=== PATIENT | female | born 1965 | race Caucasian/White ===

== ENCOUNTER 2016-11-11 14:37 | Emergency (ER) | payer OTHER, BC ==
[~2016-11-11] VITALS: Ht 172.7 cm; Wt 62.5 kg
[~2016-11-11 14:37] MED LIST: ACET325S8 PR; FAMO20TA2 PO; HALO5TAB PO; HYDR-3533 PO; HYDR1CAP30 PO; IBUP100S PO; IBUP600T26 PO
[2016-11-11 14:54] VITALS: BP 126/75; PULSE 93; RESP 18; TEMP 98; O2SAT 96
[2016-11-11] MEDS ORDERED: MIGRAINE MED (15:08)
[2016-11-11] MEDS ORDERED: ROPI.25 PO (15:08)
[2016-11-11] MEDS ORDERED: DIAZ10 PO (15:08)
[2016-11-11] MEDS ORDERED: NEUR100C PO (15:08)
[2016-11-11] MEDS ORDERED: PERC5TAB12 PO (15:25)
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
== END 2016-11-11 16:25 | disposition home or self-care (01) ==
LOC: PHEFT 14:37
DX: G89.29 Other chronic pain (principal); M79.671 Pain in right foot
CPT/HCPCS: 29515

== ENCOUNTER 2016-11-20 22:18 | Inpatient (IN) | payer BC, MEDICAID ==
[~2016-11-20] VITALS: Ht 170.2 cm; Wt 76.9 kg
[~2016-11-20 22:18] MED LIST changes: -ACET325S8 PR; +DIAZ10 PO; -FAMO20TA2 PO; -HALO5TAB PO; -HYDR-3533 PO; -HYDR1CAP30 PO; -IBUP100S PO; -IBUP600T26 PO; +MIGRAINE MED; +NEUR100C PO; +PERC5TAB12 PO; +ROPI.25 PO
[2016-11-20 22:30] VITALS: BP 114/68; PULSE 91; RESP 12; TEMP 98.6; O2SAT 97
[2016-11-20 22:57] VITALS: BP 114/68; PULSE 91; RESP 12; TEMP 98.6; O2SAT 97
[2016-11-20] MEDS ORDERED: VANCOMYCIN INJ 1,000 MG in SODIUM CHLOR 0.9% 250 ML INJ 250 ML IV ONE (23:30)
[2016-11-20] MEDS ORDERED: IBUP-1129 PO (23:31)
[2016-11-20] MEDS ORDERED: TOPA100T11 PO (23:31)
[2016-11-20] MEDS ORDERED: NEUR600T PO (23:31)
[2016-11-20] MEDS ORDERED: CYCL1TAB29 PO (23:31)
[2016-11-20] MEDS ORDERED: REQU3TAB PO (23:31)
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
[2016-11-20] MEDS ORDERED: DIAZ5 PO (23:41)
[2016-11-21 00:25] LABS: BASOPHIL # 0.1 TH/MM3 (0-0.2); BASOPHIL % 0.8 % (0.0-2.0); EOSINOPHIL # 0.4 TH/MM3 (0-0.4); EOSINOPHIL % 3.6 % (0.0-4.0); HEMATOCRIT 36.7 % (35.0-46.0); HEMO FLAGS DIFF FINAL; LYMPH % 23.8 % (9.0-44.0); LYMPHOCYTE # 2.6 TH/MM3 (1.0-4.8); MEAN CELL VOLUME 95.5 FL (80.0-100.0); MEAN CORPUSCULAR HEMOGLOBIN 32.1 PG (27.0-34.0); MEAN CORPUSCULAR HGB CONC 33.7 % (32.0-36.0); MONO % 6.9 % (0.0-8.0); NEUT % 64.9 % (16.0-70.0); PLATELET COUNT 352 TH/MM3 (150-450); RED BLOOD COUNT 3.84 MIL/MM3 (4.00-5.30); RED CELL DISTRIBUTION WIDTH 13.5 % (11.6-17.2); WHITE BLOOD COUNT 10.9 TH/MM3 (4.0-11.0)
[2016-11-21 00:36] LABS: POTASSIUM 3.5 MEQ/L (3.5-5.1)
[2016-11-21 00:39] LABS: BICARBONATE 27.7 MEQ/L (21.0-32.0)
[2016-11-21] MEDS ORDERED: MORPHINE SULFATE 4 MG/ML INJ IV PUSH ONE (01:00)
[2016-11-21] MEDS ORDERED: ONDANSETRON HCL 4 MG/2 ML VIAL IV PUSH ONE (01:00)
[2016-11-21] MEDS: CEFEPIME 2000 MG/NS 100 ML IV SCH ×4 (01:45→10:59)
--- NOTE | 2016-11-21 02:58 | RADRPT ---
EXAM DATE/TIME: 11/21/2016 00:21 [facility] COMPARISON: No previous studies available for comparison. INDICATIONS : Post operative evaluation for abscess in right great toe. RADIATION DOSE: 6.11 CTDIvol (mGy) MEDICAL HISTORY : None SURGICAL HISTORY : right great toe. ENCOUNTER: Initial ACUITY: 3 days PAIN SCALE: 8/10 LOCATION: Right great toe TECHNIQUE: Volumetric scanning of the foot was performed. Using automated exposure control and adjustment of th e mA and/or kV according to patient size, radiation dose was kept as low as reasonably achievable to obtain optimal diagnostic quality images. DICOM format image data is available electronically for re view and comparison. FINDINGS: There is a threaded orthopedic screw traversing the interphalangeal joint of the great toe. It course s from medial to lateral. There is destructive changes seen involving the base of the distal phalanx along its more lateral margin with similar changes noted involving the articular surface of the proxi mal phalanx of the great toe. There is circumferential soft tissue swelling involving the great toe. No discrete abscess. The remaining bony structures are unremarkable. No air is seen involving the sof t tissues. CONCLUSION: 1. Orthopedic screw traversing the interphalangeal joint of the great toe. 2. Destructive changes involving the distal phalanx and proximal phalanx of the great toe as detailed above. This is concerning for osteomyelitis. 3. No abscess. Vadim Kerr Jr., MD on November 21, 2016 at 1:00 Board Certified Radiologist. This report was verified electronically.
--- NOTE | 2016-11-21 02:58 | RADRPT ---
EXAM DATE/TIME: 11/21/2016 00:07 [facility] COMPARISON: No previous studies available for comparison. INDICATIONS : Post operative pain and swelling in right great toe. MEDICAL HISTORY : None. SURGICAL HISTORY : Right great toe. ENCOUNTER: Initial ACUITY: 1 day PAIN SCORE: 8/10 LOCATION: Right foot, great toe. FINDINGS: 3 views of the right first toe reveal a threaded orthopedic screw traversing the interphalangeal join t of the great toe. There is lucency surrounding the articular surfaces of the distal phalanx and pro ximal phalanx with suspected cortical destruction. No retained foreign body. Diffuse soft tissue swel ling. No appreciable air within the soft tissues. CONCLUSION: Postsurgical changes with soft tissue swelling of the great toe. Bony destructive changes involving t he distal phalanx and proximal phalanx worrisome for osteomyelitis. Vadim Kerr Jr., MD on November 21, 2016 at 1:21 Board Certified Radiologist. This report was verified electronically.
[2016-11-21] MEDS ORDERED: NICOTINE 14 MG/24 HR PATCH T-DERMAL SCH ×2 (03:00→06:00)
[2016-11-21] MEDS ORDERED: SODIUM CHLORIDE FLUSH PRN IV FLUSH (03:15)
[2016-11-21] MEDS ORDERED: MORPHINE SULFATE 4 MG/ML INJ IV PRN (03:30)
[2016-11-21] MEDS ORDERED: CYCLOBENZAPRINE HCL 10 MG TAB PO PRN (03:45)
[2016-11-21 06:22] VITALS: BP 124/91; PULSE 77; RESP 14; TEMP 98.1; O2SAT 99
[2016-11-21] MEDS ORDERED: CEFEPIME 1000 MG/NS 100 ML IV SCH ×2 (09:00)
[2016-11-21 09:04] VITALS: BP 118/76; PULSE 69; RESP 18; TEMP 98; O2SAT 96
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
[2016-11-21] MEDS: SODIUM CHLORIDE FLUSH BID IV FLUSH SCH ×2 (10:52→19:59)
[2016-11-21] MEDS: ACETAMINOPHEN/HYDROcodone 325 MG/10 MG TAB PO PRN ×3 (11:33→19:59)
[2016-11-21] MEDS: NICOTINE 7 MG/24 HR PATCH T-DERMAL SCH (11:34)
[2016-11-21] MEDS ORDERED: Vancomycin Consult Pharmacy 1 EA OTHER SCH (11:45)
[2016-11-21 12:00] VITALS: BP 149/96; PULSE 72; RESP 18; TEMP 97; O2SAT 98
[2016-11-21] MEDS ORDERED: VANCOMYCIN 1,000 MG/NS 250 ML IV SCH ×2 (12:00)
[2016-11-21] MEDS: VANCOMYCIN 0 MG/NS 250 ML IV SCH ×4 (12:49→23:45)
[2016-11-21] MEDS: CYCLOBENZAPRINE HCL 10 MG TAB PO SCH ×2 (12:49→16:51)
[2016-11-21 16:00] VITALS: BP 142/86; PULSE 77; RESP 19; TEMP 97.6; O2SAT 97
[2016-11-21] MEDS: NEOMYCIN/POLYMYXIN/BACITRACIN OINT 15 GM TUBE TOPICAL SCH (18:00)
[2016-11-21] MEDS: MORPHINE SULFATE 4 MG/ML INJ IV PUSH PRN ×2 (18:12→23:46)
[2016-11-21] MEDS ORDERED: LOPERAMIDE HCL 2 MG CAP PO PRN (18:30)
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
[2016-11-21] MEDS: BACITRACIN TOP OINT 15 GM TUBE TOPICAL SCH (19:00)
[2016-11-21] MEDS: TOPIRAMATE 100 MG TAB PO SCH (19:57)
[2016-11-21] MEDS: GABAPENTIN 300 MG CAP PO SCH (19:58)
[2016-11-21] MEDS: LACTOBACILLUS ACIDOPHILUS TAB PO SCH (19:58)
[2016-11-21] MEDS: DIAZEPAM 5 MG TAB PO PRN (19:58)
[2016-11-21 20:00] VITALS: BP 154/105; PULSE 67; RESP 20; TEMP 97.6; O2SAT 96
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
[2016-11-22] VITALS: BP 113/76; PULSE 79; RESP 20; TEMP 97.4; O2SAT 93
[2016-11-22] MEDS: ACETAMINOPHEN/HYDROcodone 325 MG/10 MG TAB PO PRN ×3 (04:41→18:08)
[2016-11-22] MEDS: DIAZEPAM 5 MG TAB PO PRN ×2 (05:17→14:01)
[2016-11-22] MEDS: MORPHINE SULFATE 4 MG/ML INJ IV PUSH PRN ×4 (05:47→22:02)
[2016-11-22 08:00] VITALS: BP 146/93; PULSE 5; RESP 17; TEMP 98; O2SAT 100
[2016-11-22] MEDS: NICOTINE 7 MG/24 HR PATCH T-DERMAL SCH (08:34)
[2016-11-22] MEDS: LACTOBACILLUS ACIDOPHILUS TAB PO SCH ×2 (08:34→20:35)
[2016-11-22] MEDS: SODIUM CHLORIDE FLUSH BID IV FLUSH SCH ×2 (08:35→20:35)
[2016-11-22] MEDS: CYCLOBENZAPRINE HCL 10 MG TAB PO SCH ×3 (08:35→18:08)
[2016-11-22] MEDS: REMOVE OLD PATCH T-DERMAL SCH (09:00)
[2016-11-22] MEDS: BACITRACIN TOP OINT 15 GM TUBE TOPICAL SCH (10:52)
[2016-11-22] MEDS: NEOMYCIN/POLYMYXIN/BACITRACIN OINT 15 GM TUBE TOPICAL SCH (10:52)
[2016-11-22 12:00] VITALS: BP 141/90; PULSE 76; RESP 19; TEMP 98; O2SAT 98
[2016-11-22] MEDS ORDERED: VENLAFAXINE HCL XR 75 MG CAP PO ONE (14:00)
[2016-11-22] MEDS: VANCOMYCIN 0 MG/NS 250 ML IV SCH ×4 (14:02→23:11)
--- NOTE | 2016-11-22 14:42 | HHI.PR ---
Subjective Remarks Nursing reports that the patient is very upset about the way her current condition came about. Otherwise is tolerating by mouth intake well and has had no medical setbacks since last night. Patient thinks that the erythema on her foot has improved as well as the pain, is requesting to be restarted on Effexor as this was a home medication she claims to be on Objective Vital Signs Date Time Temp Pulse Resp B/P (MAP) Pulse Ox O2 Delivery O2 Flow Rate FiO2 11/22/16 12:00 98.0 76 19 141/90 (107) 98 11/22/16 10:58 17 11/22/16 08:00 98.0 5 17 146/93 (110) 100 11/22/16 00:00 97.4 79 20 113/76 (88) 93 11/21/16 20:00 97.6 67 20 154/105 (121) 96 11/21/16 17:54 18 11/21/16 16:00 97.6 77 19 142/86 (104) 97 I/O 11/21/16 11/21/16 11/21/16 11/22/16 11/22/16 11/22/16 07:00 15:00 23:00 07:00 15:00 23:00 Intake Total 350 ml 720 ml 750 ml Balance 350 ml 720 ml 750 ml Intake Oral 720 ml 480 ml IV Total 350 ml 270 ml # Voids 3 1 2 # Bowel Movements 0 0 Result Diagram: 11/20/16 2345 11/20/16 2345 Objective Remarks No acute distress, Right great toe with moderate erythema with increased flexion range of motion since yesterday, no drainage noted, - erythema improved since yesterday, has normal colored skin otherwise over remaining dorsum of foot and toes, mild global foot edema with mild tenderness to palpation otherwise A/P Assessment and Plan 51-year-old white female being admitted for suspected osteomyelitis of right great toe. Hemodynamically stable upon admission Suspected osteomyelitis right great toe Likely secondary to surgical site infection. Continued partial improvement seen since admission. BC's so far neg. patient leaning towards surgical intervention , will let podiatry manage, appreciate recommendations. Appreciate infectious disease her medications as well, I anticipate she will need long-term antibiotics. Right toe pain - IV morphine when necessary for pain Skin abrasion - apply topical mupirocin right calf Chronic back pain - continue home Lortab and gabapentin Muscle spasms - continue home Valium and Flexeril Restless leg - continue Requip Depression - starting LaylaexPaul Glynn MD Nov 22, 2016 14:42
[2016-11-22 16:00] VITALS: BP 134/89; PULSE 70; RESP 18; TEMP 97.7; O2SAT 99
--- NOTE | 2016-11-22 17:39 | PD.POD ---
Subjective Podiatric Problems Right hallux infection. Patient states she is still having a lot of pain and burning. She is upset that pain medication has been reduced. She is more open to surgical intervention today. She denies any n/v/f/h/c/sob. Only complains of pain to both feet. Pain score: 8 Past Med/Surg/Social History Social History Smoking Status: Current Every Day Smoker Objective Vital Signs Vital Signs Date Time Temp Pulse Resp B/P (MAP) Pulse Ox O2 Delivery O2 Flow Rate FiO2 11/22/16 15:02 17 11/22/16 12:00 98.0 76 19 141/90 (107) 98 11/22/16 10:58 17 11/22/16 08:00 98.0 5 17 146/93 (110) 100 11/22/16 00:00 97.4 79 20 113/76 (88) 93 11/21/16 20:00 97.6 67 20 154/105 (121) 96 Coded Allergies: amoxicillin (Unverified Allergy, Severe, rash, 11/11/16) nitrofurantoin (Unverified Allergy, Severe, 11/11/16) valdecoxib (Unverified Allergy, Severe, Hives, 11/11/16) Sulfa (Sulfonamide Antibiotics) (Unverified Allergy, Intermediate, Hives, 11/11/16) metronidazole (Verified Allergy, Intermediate, Rash, 11/20/16) rofecoxib (Unverified Allergy, Intermediate, Rash, 11/11/16) latex (Unverified Allergy, Mild, rash, 11/11/16) meloxicam (Unverified Allergy, Mild, Swelling, 11/11/16) pregabalin (Unverified Allergy, Mild, Swelling, 11/11/16) diclofenac (Unverified Adverse Reaction, Intermediate, Upset Stomach, ) etodolac (Unverified Adverse Reaction, Intermediate, Upset Stomach, 11/11/16 ) ketorolac (Unverified Adverse Reaction, Intermediate, Upset Stomach, ) oxaprozin (Unverified Adverse Reaction, Intermediate, Upset Stomach, ) Exam-Podiatry Remarks Unchanged from previous exam with the exception of a decrease in erythema to the right hallux. Assessment & Plan A/P 1) right hallux cellulitis with suspected OM and infected hardware -After speaking with the patient about the surgery and the post operative care she became very emotional and decided against surgery. She thought that she could be discharged immediately after surgery, but this is not the case. She would need to stay until bone biopsy results were finalized so that proper outpatient abx could be arranged. This typically takes 4-6 days. The patient states that she ''needs to go home to help her son, go to water pump operator appts, go to doctors appts, get a sweater, get face creams, and be more comfortable.'' I explained that without waiting for final cx results she risks not getting proper abx, and I doubt the ID doctor would be agreeable to this plan given the patients hx of repeat infections. I discussed this in detail with . He is going to try and speak with the patient again. If she is agreeable to have surgery and stay until tx is completed, then I will try to add her onto the schedule tomorrow. If she declines this option I will defer to if he would prefer to discharge her as AMA, or allow her to leave with PO abx and f/u outpt with her original surgeon. -cont with current wound care orders and current abx -WBAT in surgical shoe -call if any changes or new developments Renetta Landrum DPM Nov 22, 2016 17:39
--- NOTE | 2016-11-22 18:41 | HHI.IDPN ---
Subjective Subjective Remarks ID FU DR ROBISON AFEBRILE WOUND CULTURES +_ MRSA PT STATES SHE IS OK TO HAVE SCREW REMOVED JUST UP SET W/ POST OP LENGTH OF STAY Allergies: Coded Allergies: amoxicillin (Unverified Allergy, Severe, rash, 11/11/16) nitrofurantoin (Unverified Allergy, Severe, 11/11/16) valdecoxib (Unverified Allergy, Severe, Hives, 11/11/16) Sulfa (Sulfonamide Antibiotics) (Unverified Allergy, Intermediate, Hives, 11/11/16) metronidazole (Verified Allergy, Intermediate, Rash, 11/20/16) rofecoxib (Unverified Allergy, Intermediate, Rash, 11/11/16) latex (Unverified Allergy, Mild, rash, 11/11/16) meloxicam (Unverified Allergy, Mild, Swelling, 11/11/16) pregabalin (Unverified Allergy, Mild, Swelling, 11/11/16) diclofenac (Unverified Adverse Reaction, Intermediate, Upset Stomach, ) etodolac (Unverified Adverse Reaction, Intermediate, Upset Stomach, 11/11/16 ) ketorolac (Unverified Adverse Reaction, Intermediate, Upset Stomach, ) oxaprozin (Unverified Adverse Reaction, Intermediate, Upset Stomach, ) Objective . Vital Signs Date Time Temp Pulse Resp B/P (MAP) Pulse Ox O2 Delivery O2 Flow Rate FiO2 11/22/16 16:00 97.7 70 18 134/89 (104) 99 11/22/16 15:02 17 11/22/16 12:00 98.0 76 19 141/90 (107) 98 11/22/16 10:58 17 11/22/16 08:00 98.0 5 17 146/93 (110) 100 11/22/16 00:00 97.4 79 20 113/76 (88) 93 11/21/16 20:00 97.6 67 20 154/105 (121) 96 11/22/16 11/22/16 11/23/16 15:00 23:00 07:00 # Voids 2 . Laboratory Tests Test 11/20/16 23:45 White Blood Count 10.9 TH/MM3 Red Blood Count 3.84 MIL/MM3 Hemoglobin 12.3 GM/DL Hematocrit 36.7 % Mean Corpuscular Volume 95.5 FL Mean Corpuscular Hemoglobin 32.1 PG Mean Corpuscular Hemoglobin Concent 33.7 % Red Cell Distribution Width 13.5 % Platelet Count 352 TH/MM3 Mean Platelet Volume 8.4 FL Neutrophils (%) (Auto) 64.9 % Lymphocytes (%) (Auto) 23.8 % Monocytes (%) (Auto) 6.9 % Eosinophils (%) (Auto) 3.6 % Basophils (%) (Auto) 0.8 % Neutrophils # (Auto) 7.0 TH/MM3 Lymphocytes # (Auto) 2.6 TH/MM3 Monocytes # (Auto) 0.8 TH/MM3 Eosinophils # (Auto) 0.4 TH/MM3 Basophils # (Auto) 0.1 TH/MM3 CBC Comment DIFF FINAL Differential Comment Laboratory Tests Test 11/20/16 23:45 Blood Urea Nitrogen 5 MG/DL Creatinine 0.85 MG/DL Random Glucose 93 MG/DL Calcium Level 8.6 MG/DL Sodium Level 139 MEQ/L Potassium Level 3.5 MEQ/L Chloride Level 105 MEQ/L Carbon Dioxide Level 27.7 MEQ/L Anion Gap 6 MEQ/L Estimat Glomerular Filtration Rate 70 ML/MIN Microbiology Date/Time Source Procedure Growth Status 11/20/16 00:05 Blood Peripheral Aerobic Blood Culture - Preliminary NO GROWTH IN 1 DAY Resulted 11/20/16 00:05 Blood Peripheral Anaerobic Blood Culture - Preliminary NO GROWTH IN 1 DAY Resulted 11/20/16 00:00 Blood Peripheral Aerobic Blood Culture - Preliminary NO GROWTH IN 1 DAY Resulted 11/20/16 00:00 Blood Peripheral Anaerobic Blood Culture - Preliminary NO GROWTH IN 1 DAY Resulted 11/20/16 00:10 Wound Toe Gram Stain - Final Resulted 11/20/16 00:10 Wound Culture - Preliminary S. Aureus Mrsa Resulted Physical Exam AWAKE / OX 3 PERRL NS CHEST CTA ABD SOFT ACTIVE EXT RIGHT GREAT TOE CELLULTITIS STILL THERE NO DRAINAGE TOE IS SWOLLEN Assessment & Plan Diagnosis: (1) Cellulitis of great toe of right foot ICD Codes: L03.031 - Cellulitis of right toe Status: Acute (2) Toe pain, left ICD Codes: M79.675 - Pain in left toe(s) Status: Acute (3) Osteomyelitis of toe of right foot ICD Codes: M86.9 - Osteomyelitis, unspecified Status: Acute Plan: SHE AGREES WITH SURGERY WOULD EVEN AGREE WITH CURRENT PODIATRY SHE WILL NEED PICC LINE WITH VANCOMYCIN 1.5G IV Q24H X 14D WITH FU LABS CBC BMP ESR CRP VANCO TROUGH WEEKLY AND FU IN OUR OFFICE IN 1-2 WEEKS Josie Gomez Nov 22, 2016 18:41
[2016-11-22 20:00] VITALS: BP 125/93; PULSE 71; RESP 20; TEMP 98.1; O2SAT 96
[2016-11-22] MEDS: GABAPENTIN 300 MG CAP PO SCH (20:36)
[2016-11-22] MEDS: TOPIRAMATE 100 MG TAB PO SCH (20:36)
[2016-11-23] VITALS: BP 123/86; PULSE 87; RESP 20; TEMP 97.7; O2SAT 94
[2016-11-23] MEDS: ACETAMINOPHEN/HYDROcodone 325 MG/10 MG TAB PO PRN ×3 (04:42→17:09)
[2016-11-23] MEDS: MORPHINE SULFATE 4 MG/ML INJ IV PUSH PRN ×5 (05:51→21:51)
[2016-11-23 08:00] VITALS: BP 117/79; PULSE 81; RESP 18; TEMP 96.5; O2SAT 97
--- NOTE | 2016-11-23 08:24 | HHI.IDPN ---
Subjective Subjective Remarks No fevers Pain in Right foot Swelling less Anxious to go home but understands she needs screw removed Antibiotics Vancomycin Lines Peripheral line Allergies: Coded Allergies: amoxicillin (Unverified Allergy, Severe, rash, 11/11/16) nitrofurantoin (Unverified Allergy, Severe, 11/11/16) valdecoxib (Unverified Allergy, Severe, Hives, 11/11/16) Sulfa (Sulfonamide Antibiotics) (Unverified Allergy, Intermediate, Hives, 11/11/16) metronidazole (Verified Allergy, Intermediate, Rash, 11/20/16) rofecoxib (Unverified Allergy, Intermediate, Rash, 11/11/16) latex (Unverified Allergy, Mild, rash, 11/11/16) meloxicam (Unverified Allergy, Mild, Swelling, 11/11/16) pregabalin (Unverified Allergy, Mild, Swelling, 11/11/16) diclofenac (Unverified Adverse Reaction, Intermediate, Upset Stomach, ) etodolac (Unverified Adverse Reaction, Intermediate, Upset Stomach, 11/11/16 ) ketorolac (Unverified Adverse Reaction, Intermediate, Upset Stomach, ) oxaprozin (Unverified Adverse Reaction, Intermediate, Upset Stomach, ) Objective . Vital Signs Date Time Temp Pulse Resp B/P (MAP) Pulse Ox O2 Delivery O2 Flow Rate FiO2 11/23/16 06:04 18 11/23/16 05:46 18 11/23/16 00:00 97.7 87 20 123/86 (98) 94 11/22/16 20:00 98.1 71 20 125/93 (104) 96 11/22/16 16:00 97.7 70 18 134/89 (104) 99 11/22/16 12:00 98.0 76 19 141/90 (107) 98 Physical Exam AWAKE / OX 3 , Anxious PERRL NS CHEST CTA Heart: S1 S2 normal ABD SOFT ACTIVE EXT RIGHT GREAT TOE - cellulitis improved- redness and swelling less intense however still present Assessment & Plan Diagnosis: (1) Cellulitis of great toe of right foot ICD Codes: L03.031 - Cellulitis of right toe Status: Acute Plan: IV Vancomycin 1500 mg daily x 3 weeks PICC line to be placed. If patient wants to be discharged today- she will need close follow up and see Electrical Appliance Mechanic within next few days. (2) Osteomyelitis of toe of right foot ICD Codes: M86.9 - Osteomyelitis, unspecified Status: Acute Sydnee Grover MD Nov 23, 2016 08:24
[2016-11-23] MEDS ORDERED: VANC1000P IV (08:29)
[2016-11-23] MEDS: REMOVE OLD PATCH T-DERMAL SCH (09:00)
[2016-11-23] MEDS: CYCLOBENZAPRINE HCL 10 MG TAB PO SCH ×3 (09:20→17:09)
[2016-11-23] MEDS: NICOTINE 7 MG/24 HR PATCH T-DERMAL SCH (09:20)
[2016-11-23] MEDS: LACTOBACILLUS ACIDOPHILUS TAB PO SCH ×2 (09:20→19:55)
[2016-11-23] MEDS: SODIUM CHLORIDE FLUSH BID IV FLUSH SCH ×2 (09:22→19:56)
[2016-11-23] MEDS: BACITRACIN TOP OINT 15 GM TUBE TOPICAL SCH (10:04)
[2016-11-23] MEDS: NEOMYCIN/POLYMYXIN/BACITRACIN OINT 15 GM TUBE TOPICAL SCH (10:04)
[2016-11-23] MEDS: DIAZEPAM 5 MG TAB PO PRN (11:30)
[2016-11-23] MEDS ORDERED: PHARMACY ORDERED LAB ONE (11:45)
[2016-11-23 11:51] VITALS: BP 114/81; PULSE 85; RESP 18; TEMP 97; O2SAT 96
[2016-11-23] MEDS: VANCOMYCIN 0 MG/NS 250 ML IV SCH ×2 (13:34)
[2016-11-23 16:00] VITALS: BP 135/94; PULSE 68; RESP 20; TEMP 97.7; O2SAT 96
[2016-11-23] MEDS ORDERED: diphenhydrAMINE HCL 25 MG CAP PO PRN (16:30)
--- NOTE | 2016-11-23 16:30 | HHI.PR ---
Subjective Remarks Patient complains of severe pain in the right great toe. Also complains of pruritus at the left forearm IV site. She states she tends to get hives and takes Zyrtec 3 times a day for this. She also thinks that her Topamax dose is 200 mg at night not 150 mg and that she also takes smaller 25 mg amount as needed for breakthrough migraines. The patient today is agreeable to surgery. She does not plan to follow-up with her previous orthopedic surgeon Dr. Quevedo. She would like to follow-up with Dr. Landrum. Objective Vitals Vital Signs Date Time Temp Pulse Resp B/P (MAP) Pulse Ox O2 Delivery O2 Flow Rate FiO2 11/23/16 13:55 14 11/23/16 11:51 97.0 85 18 114/81 (92) 96 11/23/16 08:00 96.5 81 18 117/79 (92) 97 11/23/16 05:46 18 11/23/16 00:00 97.7 87 20 123/86 (98) 94 11/22/16 20:00 98.1 71 20 125/93 (104) 96 I/O 11/22/16 11/22/16 11/22/16 11/23/16 11/23/16 11/23/16 07:00 15:00 23:00 07:00 15:00 23:00 Intake Total 750 ml 240 ml 960 ml Balance 750 ml 240 ml 960 ml Intake Oral 480 ml 240 ml 960 ml IV Total 270 ml # Voids 2 2 3 1 # Bowel Movements 0 0 0 Result Diagram: 11/20/16 2345 11/20/16 2345 Objective Remarks GENERAL: Well-nourished, well-developed patient. SKIN: Warm and dry. HEAD: Normocephalic. EYES: No scleral icterus. No injection or drainage. NECK: Supple, trachea midline. No JVD or lymphadenopathy. CARDIOVASCULAR: Regular rate and rhythm without murmurs, gallops, or rubs. RESPIRATORY: Breath sounds equal bilaterally. No accessory muscle use. GASTROINTESTINAL: Abdomen soft, non-tender, nondistended. EXTREMITIES: Right hallux with dull erythema, no purulence, no streaking. NEUROLOGICAL: Awake, alert, and oriented x 3. Non-focal. A/P Problem List: (1) Anxiety ICD Code: F41.9 - Anxiety disorder, unspecified (2) Osteomyelitis of toe of right foot ICD Code: M86.9 - Osteomyelitis, unspecified Status: Acute (3) Cellulitis of great toe of right foot ICD Code: L03.031 - Cellulitis of right toe Status: Acute Assessment and Plan -Osteomyelitis and cellulitis of the right hallux, with infected hardware - I discussed the patient with Dr. Landrum of podiatry and Dr. Grover infectious disease. Removal of the hardware would be recommended soon however it is not emergent. Unfortunately the patient had wavered on her decision to do surgery for 2 days and it is not clear if she will be able to get surgery scheduled before the weekend. Dr. Landrum is going to call the OR to see if he can be scheduled for tomorrow. If not been the patient can be discharged home with IV antibiotics and a PICC line, to follow-up with Dr. Landrum and have this scheduled from the outpatient setting as soon as possible. The patient acknowledges and is agreeable to the plan. Continue with pain control and IV vancomycin. -Generalized anxiety disorder. Continue her home dose of Valium as needed. -Pruritus and history of hives - resume Zyrtec, use Benadryl when necessary. -History of seizures and migraines. Continue Topamax, increase to 200 mg at bedtime dose as per home regimen. -Tobacco use, continue nicotine patch. Bee Sullivan MD Nov 23, 2016 16:30
--- NOTE | 2016-11-23 16:32 | HHI.FF ---
Face to Face Verification Diagnosis: (1) Osteomyelitis of toe of right foot (2) Cellulitis of great toe of right foot Home Health Nursing Order: IV medication administration I have seen patient Sharla Castillo on 11/23/16. My clinical findings support the need for the requested home health care services because: Injectable med education/admin I certify that my clinical findings support that this patient is homebound because: Need for psychosocial assistance Bee Sullivan MD Nov 23, 2016 16:32
[2016-11-23] MEDS: CETIRIZINE HCL 10 MG TAB PO SCH (17:08)
[2016-11-23] MEDS: GABAPENTIN 300 MG CAP PO SCH (19:56)
[2016-11-23 20:00] VITALS: BP 143/92; PULSE 64; RESP 20; TEMP 96.8; O2SAT 99
[2016-11-23] MEDS ORDERED: TOPIRAMATE 100 MG TAB PO SCH (21:00)
[2016-11-23] MEDS: VANCOMYCIN INJ 1,000 MG in SODIUM CHLOR 0.9% 250 ML INJ 250 ML IV SCH (21:51)
[2016-11-24] VITALS: BP 129/87; PULSE 71; RESP 20; TEMP 96.6; O2SAT 96
[2016-11-24] MEDS: ACETAMINOPHEN/HYDROcodone 325 MG/10 MG TAB PO PRN ×2 (05:37→11:30)
[2016-11-24 08:00] VITALS: BP 153/103; PULSE 80; RESP 22; TEMP 97.7
[2016-11-24] MEDS ORDERED: HYDR-3533 PO (08:44)
[2016-11-24] MEDS: CETIRIZINE HCL 10 MG TAB PO SCH (08:47)
[2016-11-24] MEDS: LACTOBACILLUS ACIDOPHILUS TAB PO SCH (08:48)
[2016-11-24] MEDS: REMOVE OLD PATCH T-DERMAL SCH (08:48)
[2016-11-24] MEDS: CYCLOBENZAPRINE HCL 10 MG TAB PO SCH ×2 (08:48→13:10)
[2016-11-24] MEDS: NICOTINE 7 MG/24 HR PATCH T-DERMAL SCH (08:48)
[2016-11-24] MEDS: SODIUM CHLORIDE FLUSH BID IV FLUSH SCH (08:48)
[2016-11-24] MEDS: NEOMYCIN/POLYMYXIN/BACITRACIN OINT 15 GM TUBE TOPICAL SCH (08:49)
[2016-11-24] MEDS: BACITRACIN TOP OINT 15 GM TUBE TOPICAL SCH (08:49)
[2016-11-24] MEDS: VANCOMYCIN INJ 1,000 MG in SODIUM CHLOR 0.9% 250 ML INJ 250 ML IV SCH (09:00)
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
--- NOTE | 2016-11-24 10:54 | RADRPT ---
EXAM DATE/TIME: 11/24/2016 10:45 [facility] COMPARISON: CHEST SINGLE AP, October 29, 2015, 17:48. INDICATIONS : PICC line placement. MEDICAL HISTORY : rt great toe infection. SURGICAL HISTORY : rt great toe surgery ENCOUNTER: Subsequent ACUITY: 3 days PAIN SCORE: 0/10 LOCATION: Bilateral chest FINDINGS: A single view of the chest demonstrates the lungs to be symmetrically aerated without evidence of mas s, infiltrate or effusion. The cardiomediastinal contours are unremarkable. Osseous structures are intact. There is a right PICC line in place which turns up into the soft tissues of the right neck. R epositioning recommended CONCLUSION: Right PICC line turns up into the soft tissues of the neck. Repositioning recommended Terrance Del Angel MD on November 24, 2016 at 10:51 Board Certified Radiologist. This report was verified electronically.
[2016-11-24] MEDS ORDERED: SODIUM CHLORIDE 0.9% FLUSH 10 ML FLUSH IV FLUSH PRN (11:00)
--- NOTE | 2016-11-24 11:20 | HHI.FF ---
Infusion Therapy Location of Infusion Therapy: Home Health Care IV Infusion Order Patient Information Patient Weight 76.9 kg Diagnosis: (1) Osteomyelitis of toe of right foot (2) Cellulitis of great toe of right foot Coded Allergies: amoxicillin (Unverified Allergy, Severe, rash, 11/11/16) nitrofurantoin (Unverified Allergy, Severe, 11/11/16) valdecoxib (Unverified Allergy, Severe, Hives, 11/11/16) Sulfa (Sulfonamide Antibiotics) (Unverified Allergy, Intermediate, Hives, 11/11/16) metronidazole (Verified Allergy, Intermediate, Rash, 11/20/16) rofecoxib (Unverified Allergy, Intermediate, Rash, 11/11/16) latex (Unverified Allergy, Mild, rash, 11/11/16) meloxicam (Unverified Allergy, Mild, Swelling, 11/11/16) pregabalin (Unverified Allergy, Mild, Swelling, 11/11/16) diclofenac (Unverified Adverse Reaction, Intermediate, Upset Stomach, ) etodolac (Unverified Adverse Reaction, Intermediate, Upset Stomach, 11/11/16 ) ketorolac (Unverified Adverse Reaction, Intermediate, Upset Stomach, ) oxaprozin (Unverified Adverse Reaction, Intermediate, Upset Stomach, ) Administer Medication Vancomycin 1.5 grams IV q 24 hours Start Treatment: Nov 24, 2016 Stop Treatment: Dec 15, 2016 Additional Information Venous access: PICC Line Additional Instructions [x] Peripheral flush and dressing changes per protocol [x] Implanted port and central laborer pipeline: * Implanted port: 10 ml Normal Saline followed by 5 ml Heparin 100 units/ml Heparin flush after each use and monthly to maintain. [] May leave port accessed during therapy. [] May leave peripheral site accessed for duration of therapy. [x] If patient has SOB or respiratory distress, check oxygen saturation. If less than 90% or clinical signs of respiratory distress, administer oxygen at 2 L/min. via nasal cannula and notify physician. [x] Anaphylaxis/Reaction orders: * Stop infusion. * Keep IV line open with saline flush. * Notify physician. * Monitor vital signs every 15 minutes until symptoms resolve. * Check Oxygen saturation; Oxygen at 2 L/min. via nasal cannula if less than 90% or clinical signs of respiratory distress. * Administer diphenhydramine (Benadryl) 25 mg IV STAT, (unless patient has received as pre-med). May repeat once, if necessary. * Solu-Cortef 250 mg IVP over 30-60 seconds, use 100 mg vials for each dissolution. * Epinephrine (1mg/1 ml) 0.3 mg subcutaneously or IVP now with any signs of respiratory distress. * Check with physician for new additional pre-med orders if patient is re- challenged or re-treated. [x] May remove PICC line when treatment complete, after confirming with Physician. [x] If the patient is admitted to the hospital, the ED, or transferred via [facility] , complete transfer form including medication reconciliation order sheet. Laboratory Tests Weekly Labs: CBC w/diff, CMP, CRP, Vancomycin Trough Additional Information Fax all lab results to Dr Grover [phone] Grover in 1-2 weeks [phone] Sydnee Grover MD Nov 24, 2016 11:20
--- NOTE | 2016-11-24 11:21 | HHI.IDPN ---
Subjective Subjective Remarks Anxious to go home but understands she needs screw removed- will have procedure as outpatient No fever S/p PICC line Antibiotics Vancomycin Lines Peripheral line Allergies: Coded Allergies: amoxicillin (Unverified Allergy, Severe, rash, 11/11/16) nitrofurantoin (Unverified Allergy, Severe, 11/11/16) valdecoxib (Unverified Allergy, Severe, Hives, 11/11/16) Sulfa (Sulfonamide Antibiotics) (Unverified Allergy, Intermediate, Hives, 11/11/16) metronidazole (Verified Allergy, Intermediate, Rash, 11/20/16) rofecoxib (Unverified Allergy, Intermediate, Rash, 11/11/16) latex (Unverified Allergy, Mild, rash, 11/11/16) meloxicam (Unverified Allergy, Mild, Swelling, 11/11/16) pregabalin (Unverified Allergy, Mild, Swelling, 11/11/16) diclofenac (Unverified Adverse Reaction, Intermediate, Upset Stomach, ) etodolac (Unverified Adverse Reaction, Intermediate, Upset Stomach, 11/11/16 ) ketorolac (Unverified Adverse Reaction, Intermediate, Upset Stomach, ) oxaprozin (Unverified Adverse Reaction, Intermediate, Upset Stomach, ) Objective . Vital Signs Date Time Temp Pulse Resp B/P (MAP) Pulse Ox O2 Delivery O2 Flow Rate FiO2 11/24/16 08:00 97.7 80 22 153/103 (120) 11/24/16 00:00 96.6 71 20 129/87 (101) 96 11/23/16 20:00 96.8 64 20 143/92 (109) 99 11/23/16 16:00 97.7 68 20 135/94 (108) 96 11/23/16 13:55 14 11/23/16 11:51 97.0 85 18 114/81 (92) 96 11/24/16 11/24/16 11/25/16 15:00 23:00 07:00 Intake Total 120 ml Balance 120 ml Intake Oral 120 ml # Voids 2 # Bowel Movements 0 Physical Exam AWAKE / OX 3 , Anxious PERRL NS CHEST CTA Heart: S1 S2 normal ABD SOFT ACTIVE EXT RIGHT GREAT TOE - cellulitis improved- redness and swelling less intense however still present Assessment & Plan Diagnosis: (1) Cellulitis of great toe of right foot ICD Codes: L03.031 - Cellulitis of right toe Status: Acute Plan: IV Vancomycin 1500 mg daily x 3 weeks PICC placed. Patient to follow up with Podiatry (2) Osteomyelitis of toe of right foot ICD Codes: M86.9 - Osteomyelitis, unspecified Status: Acute Sydnee Grover MD Nov 24, 2016 11:21
[2016-11-24] MEDS: DIAZEPAM 5 MG TAB PO PRN (11:34)
[2016-11-24 12:00] VITALS: BP 138/92; PULSE 69; RESP 21; TEMP 96.7; O2SAT 99
--- NOTE | 2016-11-24 12:25 | RADRPT ---
EXAM DATE/TIME: 11/24/2016 12:16 [facility] COMPARISON: CHEST SINGLE AP, November 24, 2016, 10:45. CHEST SINGLE AP, October 29, 2015, 17:48. INDICATIONS : Repostion PICC line. MEDICAL HISTORY : rt great toe infection SURGICAL HISTORY : rt great toe surgery ENCOUNTER: Subsequent ACUITY: 3 days PAIN SCORE: 0/10 LOCATION: Bilateral chest FINDINGS: A single view of the chest demonstrates the lungs to be symmetrically aerated without evidence of mas s, infiltrate or effusion. The cardiomediastinal contours are unremarkable. Osseous structures are intact. Right PICC line again precedes into the soft tissues of the right neck CONCLUSION: Right PICC line turns into the soft tissues of the right neck Terrance Del Angel MD on November 24, 2016 at 12:23 Board Certified Radiologist. This report was verified electronically.
[2016-11-24 12:35] VITALS: RESP 18
--- NOTE | 2016-11-24 13:11 | RADRPT ---
EXAM DATE/TIME: 11/24/2016 13:01 [facility] COMPARISON: CHEST SINGLE AP, November 24, 2016, 12:16. INDICATIONS : Repostion PICC line. MEDICAL HISTORY : rt great toe infection SURGICAL HISTORY : rt great toe surgery ENCOUNTER: Subsequent ACUITY: 3 days PAIN SCORE: 0/10 LOCATION: Bilateral chest FINDINGS: A single view of the chest demonstrates the lungs to be symmetrically aerated without evidence of mas s, infiltrate or effusion. PICC line with tip coiled in the subclavian vein. The cardiomediastinal c ontours are unremarkable. Osseous structures are intact. CONCLUSION: 1. PICC line coiled in the subclavian vein. 2. Clear lungs. Alex Austin MD on November 24, 2016 at 13:09 Board Certified Radiologist. This report was verified electronically.
--- NOTE | 2016-11-24 14:19 | RADRPT ---
EXAM DATE/TIME: 11/24/2016 14:04 [facility] COMPARISON: CHEST SINGLE AP, November 24, 2016, 13:01. INDICATIONS : Repostion PICC line. MEDICAL HISTORY : rt great toe infection SURGICAL HISTORY : rt great toe surgery ENCOUNTER: Subsequent ACUITY: 3 days PAIN SCORE: 0/10 LOCATION: Bilateral chest FINDINGS: There is a PICC which enters from the left arm the catheter tip overlies the superior vena cava. Ther e are chronic appearing interstitial changes. The lungs are otherwise clear. The bony structures are intact. CONCLUSION: 1. PICC in good position. Adriel Lei MD on November 24, 2016 at 14:17 Board Certified Radiologist. This report was verified electronically.
[2016-11-25] MEDS ORDERED: SODIUM CHLORIDE 0.9% FLUSH 10 ML FLUSH IV FLUSH SCH (09:00)
== END 2016-11-24 14:41 | disposition home health service (06) | DRG 540 ==
LOC: PHED 22:18 → PHEDA 11-21 01:43 → PH3B 11-21 07:47
PROVIDERS: ADMIT Family Medicine; ATTEND Family Medicine
PROC: 02HV33Z Insertion of Infusion Device into Superior Vena Cava, Percutaneous Approach (ICD-10-PCS; principal; 2016-11-24)
PROC: B548ZZA Ultrasonography of Superior Vena Cava, Guidance (ICD-10-PCS; 2016-11-24)
PROC: 06HY33Z Insertion of Infusion Device into Lower Vein, Percutaneous Approach (ICD-10-PCS; 2016-11-24)
PROC: 05PYX3Z Removal of Infusion Device from Upper Vein, External Approach (ICD-10-PCS; 2016-11-24)
DX: M86.9 Osteomyelitis, unspecified (principal); T84.69XA Infection and inflammatory reaction due to internal fixation device of other site, initial encounter; L03.031 Cellulitis of right toe; F32.9 Major depressive disorder, single episode, unspecified; F41.9 Anxiety disorder, unspecified; S92.401D Displaced unspecified fracture of right great toe, subsequent encounter for fracture with routine healing; G89.29 Other chronic pain; M54.9 Dorsalgia, unspecified; G25.81 Restless legs syndrome; F17.210 Nicotine dependence, cigarettes, uncomplicated; L29.9 Pruritus, unspecified
CPT/HCPCS: 36569; 71010; 73660; 73700; 76937; 80048; 80202; 85025; 86403; 87040; 87070; 87147; 87186; 87205; 96365; 96375; 99285; J0692; J2270; J2405; J3370; J7050

== ENCOUNTER 2017-12-25 12:50 | Inpatient (IN) ==
[2017-12-25] MEDS ORDERED: HYDROmorphone PF Inj 2 MG/ML Vial IV.PUSH ONE (13:26)
[2017-12-25] MEDS ORDERED: Acetaminophen 325 MG Tablet PO ONE (13:26)
--- NOTE | 2017-12-25 13:44 | ED ---
HPI General Chief complaint: Skin/Abscess/Foreign Body Stated complaint: both feet surgery and infected Time Seen by Provider: 12/25/17 13:08 Source: patient Mode of arrival: wheelchair Limitations: no limitations History of Present Illness HPI narrative: 52-year-old female here for evaluation of painful swelling/ possible infection to bilateral feet/toes. 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 This was treated medically with IV vancomycin for 6 weeks. On 12/08/17 she underwent podiatric surgery by Dr. Delmar Still in [facility] where she had a surgical procedure on her left great toe, right great toe, and right second toe. She had a follow-up appointment with them on 12/20/17, and reportedly everything was going well. She is scheduled for another appointment with them in a couple of days to have the rest of her sutures removed from her right second toe. She woke up this morning with severe pain, swelling, erythema, to the left great toe and right second toe with purulent drainage from the right second toe. Throughout the day today she has had subjective fevers and chills and has felt diaphoretic. Pain is severe, constant, worse with movements and palpation. She is unable to ambulate because of the pain. Related Data Home Medications Medication Instructions Recorded Confirmed [id number] 1 cap PO Q4H PRN 12/25/17 12/25/17 [Fioricet] ciprofloxacin HCl 500 mg PO BID 12/25/17 12/25/17 cyclobenzaprine 10 mg PO TID PRN 12/25/17 12/25/17 diphenhydramine HCl 25 mg PO Q4H PRN 12/25/17 12/25/17 fluticasone 2 spray INTRANASAL DAILY 12/25/17 12/25/17 gabapentin 600 mg PO DAILY 12/25/17 12/25/17 ketotifen fumarate 1 drp OPHTHALMIC (EYE) BID 12/25/17 12/25/17 oxycodone-acetaminophen 1 tab PO Q4H PRN 12/25/17 12/25/17 ropinirole 1 - 3 tab PO HS 12/25/17 12/25/17 tetrahydrozoline 1 drp OPHTHALMIC (EYE) QID 10/23/18 10/23/18 venlafaxine 150 mg PO DAILY 12/25/17 12/25/17 Allergies Allergy/AdvReac Type Severity Reaction Status Date / Time amoxicillin Allergy Severe rash Unverified 12/25/17 12:56 nitrofurantoin Allergy Severe Hives Unverified 12/25/17 12:56 valdecoxib Allergy Severe Hives Unverified 12/25/17 12:56 metronidazole Allergy Intermediate Rash Verified 12/25/17 12:56 rofecoxib Allergy Intermediate Rash Unverified 12/25/17 12:56 Sulfa (Sulfonamide Allergy Intermediate Hives Unverified 12/25/17 12:56 Antibiotics) latex Allergy Mild rash Unverified 12/25/17 12:56 meloxicam Allergy Mild Swelling Unverified 12/25/17 12:56 pregabalin Allergy Mild Swelling Unverified 12/25/17 12:56 diclofenac AdvReac Intermediate Upset Unverified 12/25/17 12:56 Stomach etodolac AdvReac Intermediate Upset Unverified 12/25/17 12:56 Stomach ketorolac AdvReac Intermediate Upset Unverified 12/25/17 12:56 Stomach oxaprozin AdvReac Intermediate Upset Unverified 12/25/17 12:56 Stomach Review of Systems ROS: all other systems reviewed are negative PMFSH Medical History Medical History Environmental allergies (Acute) Fracture of left wrist with malunion (Acute) IBS (irritable bowel syndrome) (Acute) Right wrist fracture (Acute) RLS (restless legs syndrome) (Acute) Surgical History Surgical History H/O breast augmentation (Acute) History of bunionectomy of both great toes (Acute) Social History Social History Substance History: No History of Abuse Second Hand Smoke Exposure: No Smoking Status: Current every day smoker Tobacco Type: E-Cigarettes How Often Do You Have a Drink Containing Alcohol: 2 to 3 times a week Recent Travel in [facility] within the Last 8 Weeks: No Recent Out of Country Travel within the Last 8 Weeks: No Immunization History Tetanus Immunization: >5 Years Exam Narrative Exam Narrative: GENERAL: Well-developed, well-nourished, comfortable, no apparent distress. SKIN: Significant warmth and erythema to the left great toe and right second toe with diffuse swelling to both of these toes. His toes are diffusely tender. No red streaks. No crepitus. No signs of necrosis. Running nylon suture in place in surgical incision on the dorsal aspect of the right second toe. HEAD: Atraumatic. Normocephalic. EYES: Pupils equal and round. No scleral icterus. No injection or drainage. ENT: Mucous membranes pink and dry. NECK: Trachea midline. No JVD. CARDIOVASCULAR: Tachycardic, rate 115, regular. No murmurs. RESPIRATORY: No accessory muscle use. Clear to auscultation. Breath sounds equal bilaterally. GASTROINTESTINAL: Abdomen soft, non-tender, nondistended. MUSCULOSKELETAL: Skin exam as above. NEUROLOGICAL: Awake and alert. No obvious cranial nerve deficits. Motor grossly within normal limits. Normal speech. PSYCHIATRIC: Appropriate mood and affect; insight and judgment normal. Course Initial Documented Vital Signs Temperature 99.1 F 12/25/17 12:57 Pulse Rate 130 H 12/25/17 12:57 Respiratory Rate 16 12/25/17 12:57 Blood Pressure 142/70 H 12/25/17 12:57 Pulse Oximetry 99 12/25/17 12:57 Last Documented Vital Signs Temperature 99.1 F 12/25/17 12:57 Pulse Rate 96 H 12/25/17 15:25 Respiratory Rate 16 12/25/17 15:25 Blood Pressure 127/85 12/25/17 15:25 Pulse Oximetry 97 12/25/17 15:25 Medical Decision Making MDM Narrative Medical decision making narrative: I discussed the case with MARIE Nichole for the patient's surgeon who operated on her on 12/08/17 in [facility]. He states that Dr. Still is out of town. He recommends medical management with IV antibiotics at this time. States that the patient can be admitted and treated here. Recommends removing the running nylon suture in the right second toe. He is available to call for assistance with patient management ([phone]). Running suture on right second toe was removed by me. The patient was written for 1 g of IV vancomycin given history of MRSA osteomyelitis last year. She was also given a liter of normal saline IV with improvement in her heart rate as well as oral Tylenol. CBC is remarkable for slight leukocytosis of 15,000. X-rays of the bilateral feet were ordered, however because of an IT issue I am unable to view these images at this time. The patient will be admitted for further treatment and evaluation of sepsis, bilateral foot postoperative cellulitis. Case discussed with hospitalist Dr. Zambrano who will admit the patient to his service. Medical Screen Exam Complete: Yes Emergency Medical Condition: Yes Differential Diagnosis Differential Diagnosis: Cellulitis, osteomyelitis, necrotizing fasciitis Lab Data Result diagrams: 12/25/17 13:50 12/25/17 13:50 Lab Results 12/25/17 12/25/17 12/25/17 Range/Units 13:50 13:50 13:50 CBC w Diff Auto diff final WBC 15.0 H (4.0-11.0) th/mm3 RBC 3.83 L (4.00-5.30) mil/mm3 Hgb 12.6 (11.6-15.3) gm/dL Hct 36.8 (35.0-46.0) % MCV 96.2 (80.0-100.0) fL MCH 33.0 (27.0-34.0) pg MCHC 34.3 (32.0-36.0) % RDW 11.6 (11.6-17.2) % Plt Count 407 (150-450) th/mm3 MPV 7.9 (7.0-11.0) fL Neut % (Auto) 84.2 H (16.0-70.0) % Lymph % (Auto) 7.5 L (9.0-44.0) % [place] % (Auto) 6.7 (0.0-8.0) % Eos % (Auto) 1.2 (0.0-4.0) % Baso % (Auto) 0.4 (0.0-2.0) % Neut # (Auto) 12.6 H (1.8-7.7) th/mm3 Lymph # (Auto) 1.1 (1.0-4.8) th/mm3 [place] # (Auto) 1.0 H (0.0-0.9) th/mm3 Eos # (Auto) 0.2 (0.0-0.4) th/mm3 Baso # (Auto) 0.1 (0.0-0.2) th/mm3 WBC Differential . Differential Comment . ESR (0-30) mm/hr PT 9.6 L (9.8-11.6) sec INR 0.9 Ratio APTT 28.9 (24.3-30.1) sec Sodium 133 L (136-145) meq/L Potassium 3.8 (3.5-5.1) meq/L Chloride 99 (98-107) meq/L Carbon Dioxide 26.3 (21.0-32.0) meq/L Anion Gap 8 (5-15) meq/L BUN 8 (7-18) mg/dL Creatinine 0.99 (0.50-1.00) mg/dL Estimated GFR 58 L (>89) mL/min Random Glucose 97 (74-106) mg/dL Lactic Acid (0.4-2.0) mmol/L Calcium 8.9 (8.5-10.1) mg/dL Magnesium 2.0 (1.5-2.5) mg/dL Total Bilirubin 0.3 (0.2-1.0) mg/dL AST 18 (15-37) U/L ALT 22 (10-53) U/L Alkaline Phosphatase 104 (45-117) U/L Total Protein 8.0 (6.4-8.2) g/dL Albumin 4.1 (3.4-5.0) g/dL 12/25/17 12/25/17 Range/Units 13:50 13:50 CBC w Diff WBC (4.0-11.0) th/mm3 RBC (4.00-5.30) mil/mm3 Hgb (11.6-15.3) gm/dL Hct (35.0-46.0) % MCV (80.0-100.0) fL MCH (27.0-34.0) pg MCHC (32.0-36.0) % RDW (11.6-17.2) % Plt Count (150-450) th/mm3 MPV (7.0-11.0) fL Neut % (Auto) (16.0-70.0) % Lymph % (Auto) (9.0-44.0) % [place] % (Auto) (0.0-8.0) % Eos % (Auto) (0.0-4.0) % Baso % (Auto) (0.0-2.0) % Neut # (Auto) (1.8-7.7) th/mm3 Lymph # (Auto) (1.0-4.8) th/mm3 [place] # (Auto) (0.0-0.9) th/mm3 Eos # (Auto) (0.0-0.4) th/mm3 Baso # (Auto) (0.0-0.2) th/mm3 WBC Differential Differential Comment ESR 44 H (0-30) mm/hr PT (9.8-11.6) sec INR Ratio APTT (24.3-30.1) sec Sodium (136-145) meq/L Potassium (3.5-5.1) meq/L Chloride (98-107) meq/L Carbon Dioxide (21.0-32.0) meq/L Anion Gap (5-15) meq/L BUN (7-18) mg/dL Creatinine (0.50-1.00) mg/dL Estimated GFR (>89) mL/min Random Glucose (74-106) mg/dL Lactic Acid 1.2 (0.4-2.0) mmol/L Calcium (8.5-10.1) mg/dL Magnesium (1.5-2.5) mg/dL Total Bilirubin (0.2-1.0) mg/dL AST (15-37) U/L ALT (10-53) U/L Alkaline Phosphatase (45-117) U/L Total Protein (6.4-8.2) g/dL Albumin (3.4-5.0) g/dL Imaging Data Radiologist's impression: Foot X-Ray 12/25/17 13:26 CONCLUSION: 1. There is a complete fracture of the second metatarsal head is displaced and rotated not present previously. 2. The artificial joint at the level of the first metatarsophalangeal joint appears partially displaced medially out of the joint space. 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 No definite signs of osteomyelitis for technique. Discharge Plan Discharge Disposition Patient Disposition: 30 Still Patient Discharge Condition Condition: Stable Discharge Details Diagnosis: Sepsis, Cellulitis of both feet Physicians Team ED Provider: Ricky Acuna Primary Care Provider: Jose Luis Maurice Other Providers: Kandy Elizabeth Rxs /Orders / Referrals /Forms Prescriptions: No Action cyclobenzaprine 10 mg Tablet 10 mg PO TID PRN (Reason: Muscle Pain) RF: 0 gabapentin 600 mg Tablet 600 mg PO DAILY RF: 0 ropinirole 1 mg Tablet 1 - 3 tab PO HS RF: 0 ketotifen fumarate 0.025 % (0.035 %) Drops 1 drp OPHTHALMIC (EYE) BID RF: 0 venlafaxine 150 mg Capsule,Extended Release 24hr 150 mg PO DAILY RF: 0 tetrahydrozoline 0.05 % Drops 1 drp OPHTHALMIC (EYE) QID RF: 0 ciprofloxacin HCl 500 mg Tablet 500 mg PO BID RF: 0 oxycodone-acetaminophen 10-325 mg Tablet 1 tab PO Q4H PRN (Reason: Pain) RF: 0 diphenhydramine HCl 25 mg Tablet 25 mg PO Q4H PRN (Reason: Allergic Reaction) RF: 0 fluticasone 50 mcg/actuation [place],Suspension 2 spray INTRANASAL DAILY RF: 0 [id number] [Fioricet] 50-300-40 mg Capsule 1 cap PO Q4H PRN (Reason: headache) RF: 0 Referrals: Jose Luis Maurice MD [Primary Care Provider] - See Instructions Status ED Status: Admitted Patient
[2017-12-25] MEDS ORDERED: Vancomycin Inj 1 GM/200 ML PIGGYBACK IV.SIG SCH (14:00)
[2017-12-25 14:07] LABS: Baso # (Auto) 0.1 th/mm3 (0.0-0.2); Baso % (Auto) 0.4 % (0.0-2.0); Eos # (Auto) 0.2 th/mm3 (0.0-0.4); Eos % (Auto) 1.2 % (0.0-4.0); Hematocrit 36.8 % (35.0-46.0); Hemoglobin 12.6 gm/dL (11.6-15.3); Lymph # (Auto) 1.1 th/mm3 (1.0-4.8); Lymph % (Auto) 7.5 % (9.0-44.0); Mean Corpuscular HGB Conc 34.3 % (32.0-36.0); Mean Corpuscular Volume 96.2 fL (80.0-100.0); Mean Platelet Volume 7.9 fL (7.0-11.0); Mono % (Auto) 6.7 % (0.0-8.0); Neut # (Auto) 12.6 th/mm3 (1.8-7.7); Neut % (Auto) 84.2 % (16.0-70.0); Platelet Count 407 th/mm3 (150-450); Red Blood Count 3.83 mil/mm3 (4.00-5.30); Red Cell Distribution Width 11.6 % (11.6-17.2)
[2017-12-25 14:11] LABS: Chloride 99 meq/L (98-107); Potassium 3.8 meq/L (3.5-5.1); Sodium 133 meq/L (136-145)
[2017-12-25 14:14] LABS: Calcium 8.9 mg/dL (8.5-10.1)
[2017-12-25 14:15] LABS: Albumin 4.1 g/dL (3.4-5.0); Anion Gap 8 meq/L (5-15); Blood Urea Nitrogen 8 mg/dL (7-18); Carbon Dioxide 26.3 meq/L (21.0-32.0); Glucose,Random 97 mg/dL (74-106)
[2017-12-25 14:18] LABS: Activated Partial Thrombo Time 28.9 sec (24.3-30.1); Alanine Aminotransferase 22 U/L (10-53); Aspartate Aminotransferase 18 U/L (15-37); Glomerular Filtration Rate 58 mL/min (>89); INR 0.9 Ratio; Prothrombin Time 9.6 sec (9.8-11.6)
[2017-12-25 14:21] LABS: Alkaline Phosphatase 104 U/L (45-117)
--- NOTE | 2017-12-25 14:34 | ECG ---
Date Performed: 12/25/2017 Time Performed: 13:37:56 PTAGE: 52 years EKG: SINUS TACHYCARDIA ABNORMAL RHYTHM ECG Compared to prior electrocardiogram, rate has increas ed PREVIOUS TRACING : 10/29/2015 19.50 DOCTOR: Jamshid Mcdaniel Interpretating Date/Time 12/25/2017 14:33:19
[2017-12-25] MEDS ORDERED: Sod Chloride 0.9% Inj 1,000 ML IV.SIG SCH (15:15)
--- NOTE | 2017-12-25 15:24 | XR ---
EXAM DATE: 12/25/2017 1:26 PM EDT AGE/SEX: 52 years / Female INDICATIONS: Left foot/great toe pain/swelling at old surgical site. CLINICAL DATA: This is the patient's initial encounter. Patient reports that signs and symptoms have been present for 3 weeks and indicates a pain score of 8/10. MEDICAL/SURGICAL HISTORY: Irritable bowel syndrome. Restless leg syndrome. Breast augmentation . Bilateral wrist. Bilateral bunionectomies & reconstruction surgeries. COMPARISON: [facility], TOE LEFT 2ND DIGIT (MIN 2VWS), 03/15/2012. . FINDINGS: There is complete fracture of the distal second metatarsal dorsal head not present on the prior exam with displaced bony fragment medially by full width. Sideplate and screws traverse the first metatars ophalangeal joint and there is artificial joint at this site appears to be partially displaced out of the joint medially. The rest of the examination has not significantly changed. CONCLUSION: 1. There is a complete fracture of the second metatarsal head is displaced and rotated not present p reviously. 2. The artificial joint at the level of the first metatarsophalangeal joint appears partially displa willy medially out of the joint space. Electronically signed by: Sherin Barbour MD 12/25/2017 3:23 PM EDT
[2017-12-25] MEDS ORDERED: Vancomycin Consult Pharmacy OTHER PRN (15:26)
--- NOTE | 2017-12-25 15:27 | XR ---
EXAM DATE: 12/25/2017 1:26 PM EDT AGE/SEX: 52 years / Female INDICATIONS: Right foot 2nd digit pain, swelling, oozing out of incision site post reconstruction roy rgery 12/08/2017. CLINICAL DATA: This is the patient's initial encounter. Patient reports that signs and symptoms have been present for 3 weeks and indicates a pain score of 8/10. MEDICAL/SURGICAL HISTORY: Irritable bowel syndrome. Restless leg syndrome. Breast augmentation . Bilateral wrist surgeries. Bilateral bunionectomies & reconstructions. COMPARISON: [facility], TOE RIGHT 1ST DIGIT(MIN 2VWS), 11/20/2016. . FINDINGS: Surgical screw traverses the first interphalangeal joint with significant degenerative change within this joint space. There is also a surgical screw involving the second distal metatarsal bone. Bony st ructures are osteopenic. Previously seen lytic destructive lesions of the first phalanges near the evan int space are no longer seen and replaced with hypertrophic changes. The previously seen screw has al so been replaced with a different screws since the prior exam. 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 No d efinite signs of osteomyelitis for technique. Electronically signed by: Sherin Barbour MD 12/25/2017 3:26 PM EDT
[2017-12-25] MEDS ORDERED: Acetaminophen 325 MG Tablet PO PRN (15:30)
[2017-12-25] MEDS ORDERED: Vancomycin Inj 1,000 MG in Sodium Chlor 0.9% Inj 250 ML IV.SIG ONE (16:00)
[2017-12-25] MEDS ORDERED: Levofloxacin 500 mg Premix Inj 500 MG/100 ML PIGGYBACK IV.SIG SCH (17:00)
--- NOTE | 2017-12-25 18:23 | P.HPIM ---
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 This was treated medically with IV vancomycin for 6 weeks. On 12/08/17 she underwent podiatric surgery by Dr. Delmar Still in [facility] where she had a surgical procedure on her left great toe, right great toe, and right second toe. She had a follow-up appointment with them on 12/20/17, and reportedly everything was going well. She is scheduled for another appointment with them in a couple of days to have the rest of her sutures removed from her right second toe. she says that when she woke up this morning she wasn't feeling well. she noticed redness,swelling and worsening pain to both feet.she says that she had some fever and chills last night.she says that she's been on cipro which she took the last dose last night. Inpatient Certification: I certify that the inpatient services were ordered in accordance with Medicare regulations governing the order. This includes certification that hospital inpatient services are reasonable and necessary and in the case of services not specified as inpatient-only under 42 CFR 419.22(n), that they are appropriately provided as inpatient services in accordance to with the 2-midnight benchmark under 43 CFR 412.3(e) Estimated Total Length of Stay (Days): 2 Plans for Post Hospital Care: Home Review of Systems All other systems reviewed negative except as stated in HPI [facility] - History History Provided By: Patient - Medical History Medical History: Medical History (Last Reviewed 12/25/17 @ 18:16 by Diane Zambrano MD) Environmental allergies Fracture of left wrist with malunion IBS (irritable bowel syndrome) Right wrist fracture RLS (restless legs syndrome) - Surgical History Surgical History: Surgical History (Last Reviewed 12/25/17 @ 18:16 by Diane Zambrano MD) H/O breast augmentation History of bunionectomy of both great toes - Family History Family History: Family History (Last Updated 12/25/17 @ 18:16 by Diane Zambrano MD) Other No pertinent family history - Tobacco History Second Hand Smoke Exposure: No Tobacco Use In Past 30 Days: No Smoking Status: Former smoker Tobacco Type: Cigarettes - Alcohol History How Often Do You Have a Drink Containing Alcohol: 2 to 4 times a month - Substance Use History Substance History: No History of Abuse - Travel History Recent Travel in the [place] Within the Last 8 Weeks: No Recent Travel Out of the Country Within the Last 8 Weeks: No - Immunization History Tetanus Immunization: >5 Years Hx Influenza Vaccine This Season: No Medications and Allergies Active Medications: Active Medications Acetaminophen (Tylenol) 650 mg PO Q4H PRN PRN Reason: fever/pain 1-2 Diphenhydramine HCl (Benadryl) 25 mg PO Q6H PRN PRN Reason: rash/itching Sodium Chloride (Ns Inj) 1,000 mls @ 0 mls/hr IV.SIG BOLUS TEMI Levofloxacin/Dextrose (Levaquin 500 Mg Premix Inj) 500 mg in 100 mls @ 100 mls/ hr IV.SIG Q24H TEMI Last Admin: 12/25/17 17:38 Dose: 100 mls/hr Vancomycin HCl 1,000 mg/ (Sodium Chloride) 250 mls @ 250 mls/hr IV.SIG Q12H TEMI Miscellaneous Information ([facility] Ordered Lab Info) 0 each OTHER ONCE ONE Stop: 12/27/17 03:46 Morphine Sulfate (Morphine Inj) 2 mg IV.PUSH Q4H PRN PRN Reason: breakthrough pain Ondansetron HCl (Zofran Inj) 4 mg IV.PUSH Q8H PRN PRN Reason: nausea Oxycodone/Acetaminophen (Percocet 5/325 Mg) 1 tab PO Q4H PRN PRN Reason: pain 3-7 Oxycodone/Acetaminophen (Percocet 5/325 Mg) 2 tab PO Q4H PRN PRN Reason: pain 8-10 Last Admin: 12/25/17 16:45 Dose: 2 tab Pharmacy Profile Note (Vancomycin Consult Pharmacy) 1 each OTHER UNSCH PRN PRN Reason: Pharmacy to dose Allergies Allergy/AdvReac Type Severity Reaction Status Date / Time amoxicillin Allergy Severe rash Unverified 12/25/17 12:56 nitrofurantoin Allergy Severe Hives Unverified 12/25/17 12:56 valdecoxib Allergy Severe Hives Unverified 12/25/17 12:56 metronidazole Allergy Intermediate Rash Verified 12/25/17 12:56 rofecoxib Allergy Intermediate Rash Unverified 12/25/17 12:56 Sulfa (Sulfonamide Allergy Intermediate Hives Unverified 12/25/17 12:56 Antibiotics) latex Allergy Mild rash Unverified 12/25/17 12:56 meloxicam Allergy Mild Swelling Unverified 12/25/17 12:56 pregabalin Allergy Mild Swelling Unverified 12/25/17 12:56 diclofenac AdvReac Intermediate Upset Unverified 12/25/17 12:56 Stomach etodolac AdvReac Intermediate Upset Unverified 12/25/17 12:56 Stomach ketorolac AdvReac Intermediate Upset Unverified 12/25/17 12:56 Stomach oxaprozin AdvReac Intermediate Upset Unverified 12/25/17 12:56 Stomach Home Medications Medication Instructions Recorded Confirmed Type baypudldns-mbqwzxnafygyw-krly 1 cap PO Q4H PRN 12/25/17 12/25/17 History [Fioricet] ciprofloxacin HCl 500 mg PO BID 12/25/17 12/25/17 History cyclobenzaprine 10 mg PO TID PRN 12/25/17 12/25/17 History diphenhydramine HCl 25 mg PO Q4H PRN 12/25/17 12/25/17 History fluticasone 2 spray INTRANASAL DAILY 12/25/17 12/25/17 History gabapentin 600 mg PO DAILY 12/25/17 12/25/17 History ketotifen fumarate 1 drp OPHTHALMIC (EYE) BID 12/25/17 12/25/17 History oxycodone-acetaminophen 1 tab PO Q4H PRN 12/25/17 12/25/17 History ropinirole 1 - 3 tab PO HS 12/25/17 12/25/17 History tetrahydrozoline 1 drp OPHTHALMIC (EYE) QID 12/25/17 12/25/17 History venlafaxine 150 mg PO DAILY 12/25/17 12/25/17 History Exam Vital signs: Vital Signs 12/25/17 12:57 12/25/17 13:40 12/25/17 14:25 Temperature 99.1 F Pulse Rate 130 H 106 H 104 H Respiratory Rate 16 16 Blood Pressure 142/70 H 111/78 Pulse Oximetry 99 98 98 12/25/17 15:25 Temperature Pulse Rate 96 H Respiratory Rate 16 Blood Pressure 127/85 Pulse Oximetry 97 Intake & Output 12/24/17 12/25/17 12/25/17 18:59 06:59 18:59 Intake Total 250 / 250 Balance 250 / 250 Weight 68.7 kg Intake: IV 250 / 250 Vancomycin Inj 1,000 MG In NS 250 / 250 Inj 250 ML @ 250 mls/hr IV.SIG ONCE ONE Rx#:[id number] Other: Weight On Admission 83.4 kg - Constitutional no acute distress - Routine HEENT Exam Eye: Present: PERRL - Routine Neck Exam Present: supple - Routine Respiratory Exam Present: CTA bilaterally - Routine Cardiovascular Exam Present: RRR - Routine Abdominal Exam Present: soft - Routine Extremities Exam Present: edema (edema on both feet with some erythema - worse on the right second toe.) - Routine Skin Exam Present: erythema (of both feet.) - Routine Neurological Exam Present: alert, oriented X3 Results - Labs CBC & Chem 7: 12/25/17 13:50 12/25/17 13:50 Labs: Short CBC 12/25/17 Range/Units 13:50 WBC 15.0 H (4.0-11.0) th/mm3 Hgb 12.6 (11.6-15.3) gm/dL Hct 36.8 (35.0-46.0) % Plt Count 407 (150-450) th/mm3 BMP 12/25/17 13:50 Sodium 133 L Potassium 3.8 Chloride 99 Carbon Dioxide 26.3 BUN 8 Creatinine 0.99 Calcium 8.9 Liver Function 12/25/17 Range/Units 13:50 Total Bilirubin 0.3 (0.2-1.0) mg/dL AST 18 (15-37) U/L ALT 22 (10-53) U/L Alkaline Phosphatase 104 (45-117) U/L Albumin 4.1 (3.4-5.0) g/dL - Imaging Impressions Foot X-Ray 12/25/17 13:26 CONCLUSION: 1. There is a complete fracture of the second metatarsal head is displaced and rotated not present previously. 2. The artificial joint at the level of the first metatarsophalangeal joint appears partially displaced medially out of the joint space. 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 No definite signs of osteomyelitis for technique. Caprini VTE Risk Assessment Caprini VTE Risk Assessment: Moderate/High Risk (score >= 2) Caprini Risk Assessment Model: Point Value = 1 Point Value = 2 Point Value = 3 Point Value = 5 Age 41-60 Minor surgery BMI > 25 kg/m2 Swollen legs Varicose veins or History of unexplained or recurrent spontaneous Oral contraceptives or hormone replacement Sepsis (< 1 month) Serious lung disease, including pneumonia (< 1 month) Abnormal pulmonary function Acute myocardial infarction Congestive heart failure (< 1 month) History of inflammatory bowel disease Medical patient at bed rest Age 61-74 Arthroscopic surgery Major open surgery (> 45 min) Laparoscopic surgery (> 45 min) Malignancy Confined to bed (> 72 hours) Immobilizing plaster cast Central venous access Age >= 75 History of VTE Family history of VTE Factor V Leiden Prothrombin [id number] Lupus anticoagulant Anticardiolipin antibodies Elevated serum homocysteine Heparin-induced thrombocytopenia Other congenital or acquired thrombophilia Stroke (< 1 month) Elective arthroplasty Hip, pelvis, or leg fracture Acute spinal cord injury (< 1 month) Prophylaxis Regimen: Total Risk Factor Score Risk Level Prophylaxis Regimen 0-1 Low Early ambulation 2 Moderate Order ONE of the following: *Sequential Compression Device (SCD) *Heparin 5000 units SQ BID 3-4 Higher Order ONE of the following medications: *Heparin 5000 units SQ TID *Enoxaparin/Lovenox 40 mg SQ daily (WT < 150 kg, CrCl > 30 mL/min) *Enoxaparin/Lovenox 30 mg SQ daily (WT < 150 kg, CrCl > 10-29 mL/min) *Enoxaparin/Lovenox 30 mg SQ BID (WT < 150 kg, CrCl > 30 mL/min) AND/OR *Sequential Compression Device (SCD) 5 or more Highest Order ONE of the following medications: *Heparin 5000 units SQ TID (Preferred with Epidurals) *Enoxaparin/Lovenox 40 mg SQ daily (WT < 150 kg, CrCl > 30 mL/min) *Enoxaparin/Lovenox 30 mg SQ daily (WT < 150 kg, CrCl > 10-29 mL/min) *Enoxaparin/Lovenox 30 mg SQ BID (WT < 150 kg, CrCl > 30 mL/min) AND *Sequential Compression Device (SCD) Assessment and Plan - Plan A/P - cellulitis of feet with complete fracture of the second metatarsal head is displaced and rotated . continue with IV antibiotics- will follow the cultures- consult podiatry. continue with pain control. Discussed Condition With: ER physician and the patient. H&P: Quality - VTE Deep Vein Thrombosis/Pulmonary Embolism Present on Admission: No
[2017-12-25] MEDS: Morphine Inj 4 MG/ML Vial IV.PUSH PRN ×2 (18:49→22:47)
[2017-12-25] MEDS ORDERED: Influenza (Quadrivalent) Vaccine 0.5 ML Syringe IM ONE (19:00)
[2017-12-26] MEDS: Vancomycin Inj 1,000 MG in Sodium Chlor 0.9% Inj 250 ML IV.SIG SCH ×2 (03:11→15:54)
[2017-12-26] MEDS: Morphine Inj 4 MG/ML Vial IV.PUSH PRN (05:10)
[2017-12-26 06:34] LABS: Baso # (Auto) 0.1 th/mm3 (0.0-0.2); Baso % (Auto) 0.4 % (0.0-2.0); Eos # (Auto) 0.1 th/mm3 (0.0-0.4); Eos % (Auto) 1.1 % (0.0-4.0); Hematocrit 35.7 % (35.0-46.0); Hemoglobin 12.1 gm/dL (11.6-15.3); Lymph # (Auto) 1.9 th/mm3 (1.0-4.8); Lymph % (Auto) 14.3 % (9.0-44.0); Mean Corpuscular Hemoglobin 32.8 pg (27.0-34.0); Mean Corpuscular Volume 96.7 fL (80.0-100.0); Mean Platelet Volume 8.1 fL (7.0-11.0); Mono % (Auto) 7.2 % (0.0-8.0); Neut # (Auto) 10.2 th/mm3 (1.8-7.7); Platelet Count 386 th/mm3 (150-450); Red Blood Count 3.69 mil/mm3 (4.00-5.30); Red Cell Distribution Width 11.9 % (11.6-17.2); White Blood Count 13.3 th/mm3 (4.0-11.0)
--- NOTE | 2017-12-26 08:19 | P.PNIM ---
Subjective Interval history: f/u; foot infection in no acute distress. complaining of pain to both feet. T max 99.1. has some nausea earlier which has resolved. d/w the RN. Physical Exam Vital signs: Vital Signs 12/25/17 12:57 12/25/17 13:40 12/25/17 14:25 Temperature 99.1 F Pulse Rate 130 H 106 H 104 H Respiratory Rate 16 16 Blood Pressure 142/70 H 111/78 Pulse Oximetry 99 98 98 12/25/17 15:25 12/25/17 17:15 12/25/17 18:57 Temperature Pulse Rate 96 H Respiratory Rate 16 18 17 Blood Pressure 127/85 Pulse Oximetry 97 12/25/17 20:00 12/25/17 23:08 12/26/17 00:00 Temperature 96.5 F L 99.1 F Pulse Rate 93 H 104 H Respiratory Rate 16 18 16 Blood Pressure 99/57 L 107/64 Pulse Oximetry 95 95 12/26/17 01:25 Temperature Pulse Rate Respiratory Rate 18 Blood Pressure Pulse Oximetry Intake & Output 12/25/17 12/26/17 12/26/17 18:59 06:59 18:59 Intake Total 350 / 350 730 / 730 Balance 350 / 350 730 / 730 Weight 68.7 kg 68.7 kg Intake: IV 350 / 350 250 / 250 Levaquin 500 mg Premix Inj 500 100 / 100 mg In 100 ml @ 100 mls/hr IV. SIG Q24H TEMI Rx#:[id number] Vancomycin Inj 1,000 MG In NS 250 / 250 250 / 250 Inj 250 ML @ 250 mls/hr IV.SIG Q12H TEMI Rx#:[id number] Oral 480 / 480 Other: # Voids 3 Date of Last Bowel Movement 12/25/17 Weight On Admission 83.4 kg - Constitutional no acute distress - Routine Respiratory Exam Present: CTA bilaterally - Routine Cardiovascular Exam Present: RRR - Routine Abdominal Exam Present: soft - Routine Extremities Exam Comments: edema of both feet- worse on the right side. - Routine Neurological Exam Present: alert, oriented X3 Results - Labs CBC & Chem 7: 12/26/17 05:45 12/26/17 05:45 Laboratory Results - last 24 hr 12/25/17 12/25/17 12/25/17 13:50 13:50 13:50 CBC w Diff Auto diff final WBC 15.0 H RBC 3.83 L Hgb 12.6 Hct 36.8 MCV 96.2 MCH 33.0 MCHC 34.3 RDW 11.6 Plt Count 407 MPV 7.9 Neut % (Auto) 84.2 H Lymph % (Auto) 7.5 L [place] % (Auto) 6.7 Eos % (Auto) 1.2 Baso % (Auto) 0.4 Neut # (Auto) 12.6 H Lymph # (Auto) 1.1 [place] # (Auto) 1.0 H Eos # (Auto) 0.2 Baso # (Auto) 0.1 WBC Differential . Differential Comment . ESR PT 9.6 L INR 0.9 APTT 28.9 Sodium 133 L Potassium 3.8 Chloride 99 Carbon Dioxide 26.3 Anion Gap 8 BUN 8 Creatinine 0.99 Estimated GFR 58 L Random Glucose 97 Lactic Acid Calcium 8.9 Magnesium 2.0 Total Bilirubin 0.3 AST 18 ALT 22 Alkaline Phosphatase 104 Total Protein 8.0 Albumin 4.1 12/25/17 12/25/17 12/26/17 13:50 13:50 05:45 CBC w Diff WBC RBC Hgb Hct MCV MCH MCHC RDW Plt Count MPV Neut % (Auto) Lymph % (Auto) [place] % (Auto) Eos % (Auto) Baso % (Auto) Neut # (Auto) Lymph # (Auto) [place] # (Auto) Eos # (Auto) Baso # (Auto) WBC Differential Differential Comment ESR 44 H PT INR APTT Sodium Potassium Chloride Carbon Dioxide Anion Gap BUN Creatinine 0.84 Estimated GFR 71 L Random Glucose Lactic Acid 1.2 Calcium Magnesium Total Bilirubin AST ALT Alkaline Phosphatase Total Protein Albumin 12/26/17 05:45 CBC w Diff Auto diff final WBC 13.3 H RBC 3.69 L Hgb 12.1 Hct 35.7 MCV 96.7 MCH 32.8 MCHC 34.0 RDW 11.9 Plt Count 386 MPV 8.1 Neut % (Auto) 77.0 H Lymph % (Auto) 14.3 [place] % (Auto) 7.2 Eos % (Auto) 1.1 Baso % (Auto) 0.4 Neut # (Auto) 10.2 H Lymph # (Auto) 1.9 [place] # (Auto) 1.0 H Eos # (Auto) 0.1 Baso # (Auto) 0.1 WBC Differential . Differential Comment . ESR PT INR APTT Sodium Potassium Chloride Carbon Dioxide Anion Gap BUN Creatinine Estimated GFR Random Glucose Lactic Acid Calcium Magnesium Total Bilirubin AST ALT Alkaline Phosphatase Total Protein Albumin - Imaging Impressions Foot X-Ray 12/25/17 13:26 CONCLUSION: 1. There is a complete fracture of the second metatarsal head is displaced and rotated not present previously. 2. The artificial joint at the level of the first metatarsophalangeal joint appears partially displaced medially out of the joint space. 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 No definite signs of osteomyelitis for technique. Assessment and Plan - Plan A/P - cellulitis of feet. XR of the left foot with complete fracture of the second metatarsal head is displaced and rotated . continue with IV antibiotics- will follow the cultures- consulted podiatry and ID. continue with pain control. -DVT prophylaxis - pending podiatry evaluation. Discussed Condition With: the patient and RN.
[2017-12-26] MEDS ORDERED: TETRAHYDROZOLINE EACH EYE SCH (09:00)
[2017-12-26] MEDS ORDERED: KETOTIFEN FUMARATE EACH EYE SCH (09:00)
[2017-12-26] MEDS: Venlafaxine XR 75 MG Capsule PO SCH (09:15)
[2017-12-26] MEDS: Gabapentin 300 MG Capsule PO SCH ×2 (09:16→21:46)
[2017-12-26] MEDS: Butalbital/APAP/Caff 50/325/40 MG Tablet PO PRN ×2 (09:19→17:57)
[2017-12-26] MEDS: HYDROmorphone PF Inj 2 MG/ML Vial IV.PUSH PRN ×3 (09:25→21:42)
--- NOTE | 2017-12-26 17:47 | MB ---
cc: Fabrice Jacques MD DATE: 12/26/2017 REQUESTING PHYSICIAN: Dr. Zambrano. REASON FOR VISIT: Right foot infection. HISTORY OF PRESENT ILLNESS: This is a 52-year-old white female who is status post surgery on the right foot. The patient underwent placement of hardware including screw and pin into the second right toe and reconstructive surgery on the right great toe with a graft on 08/30/2017 in [place], [place]. She developed severe pain and swelling and redness of both feet and was having heavy sweats and nausea and she presented to the emergency department for evaluation. She was having drainage coming from the top of the second right toe where stitches were in place. She was wearing a boot after the surgery. She stopped using the boot and removed a few stitches at the dorsum of the toe, where she has a longitudinal incision and she was having drainage after that for the past few days. She reported that she contacted her surgeon and was told to come to the hospital for IV antibiotics. A culture was taken from the top of the second toe on the right and came back with MRSA. Blood cultures were also drawn and 1 of 4 bottles has gram-positive cocci. The patient tells me that left foot was also inflamed and red. She states that she had a graft in the past and reconstruction of the second toe enough to have balance because she had a deformity of that second toe. The problem was also involving the great toe, which was reconstructed in the past in June. A graft was placed on the second toe at that time. The second toe 2 graft started to show redness at the second toe and dorsal aspect of the left foot. She was started on vancomycin after admission. She is afebrile. Her white blood cell count is elevated. T-max is 99.7 degrees. The patient was on ciprofloxacin for about a week after the surgery was performed on 12/08/2017. PAST MEDICAL HISTORY: Irritable bowel syndrome, history of bilateral wrist surgery, restless leg syndrome, history of bunionectomy of the great toes, history of surgery on the left foot for correction of bunionectomy with resection of the bunion and reconstruction of the great toe and second toe, history of surgery on the left foot including shortening of the second toe and placement of graft with pin and screw. ALLERGIES: 1. AMOXICILLIN. 2. NITROFURANTOIN. 3. METRONIDAZOLE. 4. ROFECOXIB 5. VALDECOXIB 6. SULFA. 7. MELOXICAM. 8. PREGABALIN. 9. DICLOFENAC. 10. ETODOLAC. 11. KETOROLAC. 12. OXAPROZIN. MEDICATIONS: 1. Fioricet. 2. Flexeril. 3. Valium. 4. Benadryl. 5. Flonase nasal spray. 6. Neurontin. 7. Levaquin. 8. Habitrol patch. 9. Percocet 5 p.r.n. 10. Vancomycin. 11. Effexor. SOCIAL HISTORY: No tobacco, occasional alcohol. No illicit drugs. FAMILY HISTORY: Noncontributory. REVIEW OF SYSTEMS: All systems have been reviewed and are negative except for features mentioned in history of present illness. PHYSICAL EXAMINATION: GENERAL: This is a well-developed, slender female in no acute distress. She is awake and alert and oriented. VITAL SIGNS: Temperature 99 degrees. BP 105/68, respirations 18, heart rate 95. HEENT: Atraumatic. Extraocular muscles intact. Pupils reactive to light. No icterus. Oropharynx mucosa moist. NECK: Supple without adenopathy or swelling. LUNGS: Clear. HEART: Regular S1, S2, without murmurs. ABDOMEN: Bowel sounds present. Soft, no tenderness appreciated. RECTAL: Not performed. EXTREMITIES: The right foot is markedly swollen over the entire dorsum of the foot and over the great toe and second toe. The second toe has a longitudinal incision, which has serous drainage coming from the top at the incision. The dorsum of the right foot is extremely warm and very tender. There is swelling at the bottom of the right foot at the base of the toe area as well. The left foot has mild erythema at toes one; and to a lesser extent, the second toe, but no significant edema and no redness at the base of the foot and there is no erythema at the dorsum of the foot beyond the toes. There is a floppy second toe. SKIN: No diffuse rash. NEUROLOGIC: Nonfocal. PSYCHIATRIC: The patient is calm and cooperative. LABORATORY DATA: WBC 13.3, platelets 386, hemoglobin 12.1, 77% neutrophils, 14% lymphocytes. Creatinine 0.84, BUN 8, sodium 133. Liver function test normal. IMPRESSION: 1. Postoperative wound infection of the right foot due to methicillin-resistant Staphylococcus aureus. The patient is status post reconstructive surgery of the right foot with hardware on 12/08/2017. 2. Cellulitis of both feet. 3. Positive blood culture with gram-positive cocci in 1 of 4 bottles. Unsure if this is related to the foot infection or contamination because it is only present in 1 bottle. 4. Multiple antibiotic allergies. 5. Leukocytosis secondary to infection. RECOMMENDATIONS: 1. Continue vancomycin, which will cover the MRSA and gram-positive cocci in the blood if the gram-positive cocci in the blood is significant. 2. Discontinue ciprofloxacin. 3. Monitor blood cultures. 4. Monitor sensitivity of the MRSA to determine if adjustment of antibiotics may be necessary. 5. Follow the white blood cell count. 6. Determination on whether surgical intervention is necessary can be made by podiatry. The patient definitely will need a course of antibiotic treatment for the infection and will need to be monitored during treatment. Thank you for this consultation. I will continue to follow the patient's progress with you and make further recommendations and followup if necessary. MD ALECIA Hickey/piper/tatiana , 04:33 PM , 04:54 PM MINAL
--- NOTE | 2017-12-26 21:52 | P.CON ---
History of Present Illness Service: Foot and ankle surgery/podiatry Consult date: 12/26/17 Reason for Consult: Bilateral foot infection Primary Care Provider: Jose Luis Maurice Chief Complaint: Bilateral foot infection History of Present Illness: Podiatry consulted for this 52-year-old female presented to the emergency department with erythema and pain to bilateral foot. Patient has had multiple surgeries by outside outside salesman most recently surgery was performed by Dr. Still in [place] in early December. Patient states that she is a very trusting close relationship with her surgeon and would prefer if he would be the only one to follow her foot. Patient does relate a upcoming surgery with the same orthopedic surgeon in the next month on the left foot. Patient denies any nausea vomiting fevers or chills states the left foot has greatly improved on IV antibiotics although the right foot continues to have edema erythema and drainage. Review of Systems Constitutional: Denies chills, Denies fatigue, Denies fever(s), Denies headache( s), Denies increased appetite, Denies night sweats, Denies weakness Cardiovascular: Reports foot swelling, Denies chest pain, Denies shortness of breath Gastrointestinal: Denies nausea, Denies vomiting PMFSH - History History Provided By: Patient - Medical History Medical History: Medical History (Last Reviewed 12/26/17 @ 21:46 by Kandy Elizabeth DPM) Environmental allergies Fracture of left wrist with malunion IBS (irritable bowel syndrome) Right wrist fracture RLS (restless legs syndrome) - Surgical History Surgical History: Surgical History (Last Reviewed 12/26/17 @ 21:46 by Kandy Elizabeth DPM) H/O breast augmentation History of bunionectomy of both great toes - Family History Family History: Family History (Last Reviewed 12/26/17 @ 21:46 by Kandy Elizabeth DPM) Other No pertinent family history - Tobacco History Second Hand Smoke Exposure: No Tobacco Use In Past 30 Days: No Smoking Status: Former smoker Tobacco Type: Cigarettes - Alcohol History How Often Do You Have a Drink Containing Alcohol: 2 to 4 times a month - Substance Use History Substance History: No History of Abuse - Travel History Recent Travel in the [facility] Within the Last 8 Weeks: No Recent Travel Out of the Country Within the Last 8 Weeks: No - Immunization History Tetanus Immunization: Unable to Assess Hx Influenza Vaccine This Season: Yes Medications and Allergies Active Medications: Active Medications Acetaminophen (Tylenol) 650 mg PO Q4H PRN PRN Reason: fever/pain 1-2 Acetaminophen/Butalbital/Caffeine (Fioricet 50-325-40) 1 tab PO Q4H PRN PRN Reason: HEADACHE Last Admin: 12/26/17 17:57 Dose: 1 tab Cyclobenzaprine HCl (Flexeril) 10 mg PO TID [facility] Last Admin: 12/26/17 17:53 Dose: 10 mg Diazepam (Valium) 10 mg PO TID PRN PRN Reason: anxiety Last Admin: 12/26/17 21:41 Dose: 10 mg Diphenhydramine HCl (Benadryl) 25 mg PO Q6H PRN PRN Reason: rash/itching Fluticasone Propionate (Flonase Nasal [place]) 2 spray EACH NARE DAILY [facility] Last Admin: 12/26/17 12:51 Dose: 2 spray Gabapentin (Neurontin) 600 mg PO DAILY [facility] Last Admin: 12/26/17 09:16 Dose: Not Given Hydromorphone HCl (Dilaudid Pf Inj) 0.5 mg IV.PUSH Q4H PRN PRN Reason: BREAKTHROUGH PAIN Last Admin: 12/26/17 21:42 Dose: 0.5 mg Sodium Chloride (Ns Inj) 1,000 mls @ 0 mls/hr IV.SIG BOLUS TEMI Vancomycin HCl 1,000 mg/ (Sodium Chloride) 250 mls @ 250 mls/hr IV.SIG Q12H [facility] Last Infusion: 12/26/17 16:54 Dose: Infused Miscellaneous Information ([facility] Ordered Lab Info) 0 each OTHER ONCE ONE Stop: 12/27/17 03:46 Nicotine (Habitrol 21 Mg Patch.24 Hr) 1 patch T-DERMAL DAILY [facility] Last Admin: 12/26/17 11:15 Dose: 1 patch Ondansetron HCl (Zofran Inj) 4 mg IV.PUSH Q8H PRN PRN Reason: nausea Oxycodone/Acetaminophen (Percocet 5/325 Mg) 1 tab PO Q4H PRN PRN Reason: pain 3-7 Oxycodone/Acetaminophen (Percocet 5/325 Mg) 2 tab PO Q4H PRN PRN Reason: pain 8-10 Last Admin: 12/26/17 12:40 Dose: 2 tab Patch Removal (Remove Old Patch) 1 each T-DERMAL DAILY [facility] Pt's Own: Ketotifen Fumarate [Zaditor Opth.] 1 Drop 0 each EACH EYE BID [facility] Patient's Own: ( Tetrahydrozoline [ Visine] 1 Drop) 0 each EACH EYE QID [facility] Pharmacy Profile Note (Vancomycin Consult Pharmacy) 1 each OTHER UNSCH PRN PRN Reason: Pharmacy to dose Ropinirole HCl (Requip) 1 mg PO [facility] Last Admin: 12/26/17 21:41 Dose: 1 mg Venlafaxine HCl (Effexor Xr) 150 mg PO DAILY [facility] Last Admin: 12/26/17 09:15 Dose: 150 mg Allergies Allergy/AdvReac Type Severity Reaction Status Date / Time amoxicillin Allergy Severe rash Unverified 12/25/17 12:56 nitrofurantoin Allergy Severe Hives Unverified 12/25/17 12:56 valdecoxib Allergy Severe Hives Unverified 12/25/17 12:56 metronidazole Allergy Intermediate Rash Verified 12/25/17 12:56 rofecoxib Allergy Intermediate Rash Unverified 12/25/17 12:56 Sulfa (Sulfonamide Allergy Intermediate Hives Unverified 12/25/17 12:56 Antibiotics) latex Allergy Mild rash Unverified 12/25/17 12:56 meloxicam Allergy Mild Swelling Unverified 12/25/17 12:56 pregabalin Allergy Mild Swelling Unverified 12/25/17 12:56 diclofenac AdvReac Intermediate Upset Unverified 12/25/17 12:56 Stomach etodolac AdvReac Intermediate Upset Unverified 12/25/17 12:56 Stomach ketorolac AdvReac Intermediate Upset Unverified 12/25/17 12:56 Stomach oxaprozin AdvReac Intermediate Upset Unverified 12/25/17 12:56 Stomach Home Medications Medication Instructions Recorded Confirmed Type [id number] 1 cap PO Q4H PRN 12/25/17 12/25/17 History [Fioricet] ciprofloxacin HCl 500 mg PO BID 12/25/17 12/25/17 History cyclobenzaprine 10 mg PO TID 12/25/17 12/25/17 History diazepam 5 mg PO TID-QID PRN 12/25/17 12/25/17 History diphenhydramine HCl 25 mg PO Q4H PRN 12/25/17 12/25/17 History fluticasone 2 spray INTRANASAL DAILY 12/25/17 12/25/17 History gabapentin 600 mg PO DAILY 12/25/17 12/25/17 History ketotifen fumarate 1 drp OPHTHALMIC (EYE) BID 12/25/17 12/25/17 History oxycodone-acetaminophen 1 tab PO Q4H PRN 12/25/17 12/25/17 History ropinirole 1 - 3 tab PO HS 12/25/17 12/25/17 History tetrahydrozoline 1 drp OPHTHALMIC (EYE) QID 12/25/17 12/25/17 History venlafaxine 150 mg PO DAILY 12/25/17 12/25/17 History topiramate [Topamax] 300 mg PO HS 12/26/17 12/26/17 History Physical Exam Vital signs: Vital Signs 12/25/17 23:08 12/26/17 00:00 12/26/17 01:25 Temperature 99.1 F Pulse Rate 104 H Respiratory Rate 18 16 18 Blood Pressure 107/64 Pulse Oximetry 95 12/26/17 08:00 12/26/17 08:40 12/26/17 09:49 Temperature 99.7 F H Pulse Rate 97 H Respiratory Rate 18 18 18 Blood Pressure 104/62 Pulse Oximetry 97 12/26/17 09:55 12/26/17 12:00 12/26/17 13:10 Temperature 99.4 F Pulse Rate 101 H Respiratory Rate 17 18 18 Blood Pressure 101/66 Pulse Oximetry 94 L 12/26/17 16:00 12/26/17 16:21 12/26/17 20:00 Temperature 99.0 F 98.6 F Pulse Rate 95 H 97 H Respiratory Rate 18 18 16 Blood Pressure 105/68 116/81 Pulse Oximetry 95 97 Intake & Output 12/26/17 12/26/17 12/27/17 06:59 18:59 06:59 Intake Total 730 / 730 250 / 250 Balance 730 / 730 250 / 250 Weight 68.7 kg Intake: IV 250 / 250 250 / 250 Vancomycin Inj 1,000 MG In NS 250 / 250 250 / 250 Inj 250 ML @ 250 mls/hr IV.SIG Q12H TEMI Rx#:[id number] Oral 480 / 480 Other: # Voids 3 4 Date of Last Bowel Movement 12/25/17 12/25/17 Narrative: GENERAL: This is a well-nourished, well-developed patient, in no apparent distress. SKIN: Increased redness and erythema noted to right foot specifically to incision at dorsal second metatarsal with associated drainage. HEAD: Atraumatic. EYES: Pupils equal round and reactive. ENT: Airway patent. NECK: Trachea midline. RESPIRATORY: Nonlabored breathing. MUSCULOSKELETAL:. Negative Homans sign bilaterally. NEUROLOGICAL: Awake and alert. Normal speech. Lower extremity physical exam: Vascular: Dorsalis pedis 2/4, posterior tibial 2/4. Capillary refill time within normal limits to digits x5 bilateral foot. Edema present bilateral forefoot, right greater than left Neuro: Gross sensation intact to bilateral lower extremity. Pinpoint sensation intact. No hyperalgesia noted to bilateral lower extremity Dermatology: Incision to right dorsal second metatarsal with associated erythema and edema and drainage, no fluctuance no crepitus noted, no purulent drainage noted upon compression, no malodor. Musculoskeletal: Tender to palpation to right foot globally. Assessment and Plan - Plan 52-year-old female status post bilateral foot surgery, most recently underwent right foot surgery with surgical site infection Patient is evaluated and examined with all questions answered Patient states she would like to wait and decide with original surgeon as to whether or not drainage is necessary Patient states she is willing to proceed with incision and drainage however she would like to wait another day to see if antibiotics improve her right foot as she states her left foot has improved significantly on antibiotics Patient states she like to consider transfer to [facility] in [place] We will sign out care to Dr. Landrum and have her evaluate patient in the next 24 -48 hours X-rays reviewed to bilateral foot
[2017-12-27] MEDS ORDERED: VANCOMYCIN TROUGH OTHER ONE (03:45)
[2017-12-27] MEDS: Vancomycin Inj 1,000 MG in Sodium Chlor 0.9% Inj 250 ML IV.SIG SCH (04:05)
[2017-12-27] MEDS: HYDROmorphone PF Inj 2 MG/ML Vial IV.PUSH PRN ×5 (04:09→21:40)
[2017-12-27] MEDS: Gabapentin 300 MG Capsule PO SCH (08:14)
[2017-12-27] MEDS: Venlafaxine XR 75 MG Capsule PO SCH (08:14)
--- NOTE | 2017-12-27 09:56 | P.PNIM ---
Subjective Interval history: f/u; right foot infection in no acute distress. erythema is improving slowly along with swelling. no fever. Physical Exam Vital signs: Vital Signs 12/26/17 09:55 12/26/17 12:00 12/26/17 13:10 Temperature 99.4 F Pulse Rate 101 H Respiratory Rate 17 18 18 Blood Pressure 101/66 Pulse Oximetry 94 L 12/26/17 16:00 12/26/17 16:21 12/26/17 20:00 Temperature 99.0 F 98.6 F Pulse Rate 95 H 97 H Respiratory Rate 18 18 16 Blood Pressure 105/68 116/81 Pulse Oximetry 95 97 12/26/17 23:46 12/27/17 00:44 Temperature 98.0 F Pulse Rate 102 H Respiratory Rate 18 16 Blood Pressure 121/59 L Pulse Oximetry 93 L Intake & Output 12/26/17 12/27/17 12/27/17 18:59 06:59 18:59 Intake Total 250 / 250 890 / 890 Output Total 300 / 300 Balance 250 / 250 590 / 590 Weight 68.7 kg Intake: IV 250 / 250 250 / 250 Vancomycin Inj 1,000 MG In NS 250 / 250 250 / 250 Inj 250 ML @ 250 mls/hr IV.SIG Q12H TEMI Rx#:[id number] Oral 640 / 640 Output: Urine 300 / 300 Other: # Voids 4 1 Date of Last Bowel Movement 12/25/17 12/26/17 - Constitutional no acute distress - Routine Respiratory Exam Present: CTA bilaterally - Routine Cardiovascular Exam Present: RRR - Routine Abdominal Exam Present: soft - Routine Extremities Exam Comments: edema has slightly improved. - Routine Skin Exam Present: erythema (erythema of the foot slightly better today.) - Routine Neurological Exam Present: alert, oriented X3 Results - Labs CBC & Chem 7: 12/26/17 05:45 12/26/17 05:45 Microbiology 12/25/17 14:00 Blood - Peripheral Aerobic Blood Culture - Preliminary No growth in 1 day 12/25/17 14:00 Blood - Peripheral Anaerobic Blood Culture - Preliminary gram positive cocci 12/25/17 13:45 Wound - Foot Gram Stain - Final 12/25/17 13:45 Wound - Foot Wound Culture - Preliminary S. aureus MRSA 12/25/17 13:50 Blood - Peripheral Aerobic Blood Culture - Preliminary No growth in 1 day 12/25/17 13:50 Blood - Peripheral Anaerobic Blood Culture - Preliminary No growth in 1 day Assessment and Plan - Plan A/P - cellulitis of feet. XR of the left foot with complete fracture of the second metatarsal head is displaced and rotated . continue with IV antibiotics- consulted podiatry and ID. continue with pain control. wound culture with MRSA/ one bottle of blood cultures with gram-positive cocci -likely contamination. -DVT prophylaxis - subq Lovenox. Discharge Planning: when cleared by ID and podiatry.
[2017-12-27] MEDS: Enoxaparin Inj 40 MG/0.4 ML Syringe SQ SCH (11:26)
--- NOTE | 2017-12-27 14:03 | CT ---
EXAM DATE: 12/27/2017 1:35 PM EDT AGE/SEX: 52 years / Female INDICATIONS: Bilateral great toe and foot pain. Evaluate for osteomyelitis. CLINICAL DATA: This is the patient's initial encounter. Patient reports that signs and symptoms have been present for 1 week and indicates a pain score of 7/10. MEDICAL/SURGICAL HISTORY: Irritable bowel syndrome. . Bilateral bunionectomy. RADIATION DOSE: 6.23 CTDI (mGy) ; Combined studies COMPARISON: [facility], FOOT COMPLETE LEFT 3V, 12/25/2017. . TECHNIQUE: Multiple contiguous axial images were acquired using a multirow detector CT scanner after the intravenous administration of 95 ml Omnipaque 350 (iohexol) nonionic water-soluble contrast as a cumulative dose for multiple exams. Multiplanar reconstruction was performed in the sagittal and c oronal planes. Using automated exposure control and adjustment of the mA and/or kV according to aiden ent size, radiation dose was kept as low as reasonably achievable to obtain optimal diagnostic qualit y images. DICOM format image data is available electronically for review and comparison. FINDINGS: Postsurgical changes are seen along the first ray characteristic of prior bunionectomy. There is a si deplate and osseous screws securing the first metatarsal and the distal phalanx with possible surgica l resection of the proximal phalanx. There appears to be a fibular bone graft interposed between the 2 ossific structures. The dorsal side plate is fractured and the distal phalanx is displaced medially. The proximal end of the distal phalanx shows cortical irregularity which could represent a chronic osteomyelitis.. The se samoids along the first ray appear to be displaced proximally off of the metatarsal head. On the second digit, there appears to be a chronic fracture deformity of the distal metatarsal with d eformity and partial resorption of the proximal phalanx of the same digit. A single osseous screw sec ures the distal metadiaphysis of the third metatarsal. CONCLUSION: 1. Postsurgical changes in the first and third digits as detailed above. 2. There appears to be a prior bunionectomy involving the first ray with a dorsal sideplate and mult iple osseous screws. The side plate is fractured and the distal phalanx is displaced medially. 3. I believe that there is a fibular interposition bone graft between the distal first metatarsal an d the distal phalanx. Again, the distal phalanx is displaced medial and is no longer in alignment wit h the bone graft. 4. Loss of the defined cortical margin the proximal end of the distal phalanx of the first ray which could represent a chronic osteomyelitis. 5. The sesamoids of the first metatarsal appear to be displaced proximally off of the metatarsal hea d. 6. Chronic fracture, deformity and resorption of the distal aspect of the second metatarsal with angeline ost complete resorption of the proximal phalanx of the same digit. The phalanges of the second digit are displaced medially. Electronically signed by: Maksim Costa MD 12/27/2017 2:01 PM EDT
--- NOTE | 2017-12-27 14:11 | CT ---
EXAM DATE: 12/27/2017 1:32 PM EDT AGE/SEX: 52 years / Female INDICATIONS: Bilateral great toe and foot pain. Evaluate for osteomyelitis. CLINICAL DATA: This is the patient's initial encounter. Patient reports that signs and symptoms have been present for 1 week and indicates a pain score of 7/10. MEDICAL/SURGICAL HISTORY: Irritable bowel syndrome. . Bilateral bunionectomy. RADIATION DOSE: 6.23 CTDI (mGy) ; Combined studies COMPARISON: [facility], FOOT COMPLETE RIGHT 3V, 12/25/2017. . TECHNIQUE: Multiple contiguous axial images were acquired using a multirow detector CT scanner after the intravenous administration of 95 ml Omnipaque 350 (iohexol) nonionic water-soluble contrast as a cumulative dose for multiple exams. Multiplanar reconstruction was performed in the sagittal and c oronal planes. Using automated exposure control and adjustment of the mA and/or kV according to aiden ent size, radiation dose was kept as low as reasonably achievable to obtain optimal diagnostic qualit y images. DICOM format image data is available electronically for review and comparison. FINDINGS: Osseous screws secure the distal phalanx and proximal phalanx of the first digit. Hardware appears to be intact but there is some bony irregularity and loss of distinct cortical margins along the distal aspect of the proximal phalanx and proximal aspect of the distal phalanx. As such, findings could re present osteomyelitis. There also appears to be a small sinus tract of the dorsal medial aspect of th e great toe near the base of the nail. In the second digit, there is an osseous screw traversing the second metatarsal head. There is some o sseous irregularity involving the endplates of the proximal interphalangeal joint with bony erosion a long the proximal aspect of the middle phalanx. This area is also concerning for possible osteomyelit is CONCLUSION: 1. Postsurgical changes along the first ray with an osseous screws securing the proximal and distal phalanges. Some cortical irregularity between the 2 phalanges could represent osteomyelitis. There al so appears to be a small cysts soft tissue sinus tract along the dorsal medial aspect of the great to e extending down to the hardware. 2. Additional area of cortical irregularity in the proximal interphalangeal joint of the second digi t. Again, findings could represent a focal osteomyelitis. Electronically signed by: Maksim Costa MD 12/27/2017 2:09 PM EDT
--- NOTE | 2017-12-27 14:32 | ECHRPT ---
Indication: Sepsis Possible Endocarditis CONCLUSIONS Normal left ventricular size. Wall thickness is normal. The left ventricular systolic function is normal with an estimated ejection fraction in the range of 55-60%. Trace mitral valve regurgitation. There is trace tricuspid valve regurgitation. The estimated pulmonary arterial pressure is 39 mmHg. Estimated RAP 8mmHg. There are no valvular vegetations visualized on the current study. A MIGUEL ANGEL may be considered for impro geneva sensitivity if clinically indicated. BP: / HR: Rhythm: MEASUREMENTS (Male / Female) Normal Values Technical Quality:Technically difficult study 2D ECHO LV Diastolic Diameter PLAX 4.0 cm 4.2 - 5.9 / 3.9 - 5.3 cm LV Systolic Diameter PLAX 2.7 cm IVS Diastolic Thickness 1.0 cm 0.6 - 1.0 / 0.6 - 0.9 cm LVPW Diastolic Thickness 1.0 cm 0.6 - 1.0 / 0.6 - 0.9 cm LV Relative Wall Thickness 0.5 RV Internal Dim ED PLAX 2.3 cm LVOT Diameter 2.0 cm Aortic Root Diameter 3.0 cm LA Systolic Diameter LX 3.0 cm 3.0 - 4.0 / 2.7 - 3.8 cm DOPPLER AV Peak Velocity 119.0 cm/s AV Peak Gradient 5.7 mmHg LVOT Peak Velocity 114.0 cm/s LVOT Peak Gradient 5.2 mmHg AV Area Cont Eq pk 3.0 cm Mitral E Point Velocity 98.2 cm/s Mitral A Point Velocity 76.5 cm/s Mitral E to A Ratio 1.3 LV E' Lateral Velocity 10.3 cm/s Mitral E to LV E' Lateral Ratio 9.5 LV E' Septal Velocity 12.5 cm/s Mitral E to LV E' Septal Ratio 7.9 TR Peak Velocity 267.0 cm/s TR Peak Gradient 28.5 mmHg Right Atrial Pressure 10.0 mmHg Pulmonary Artery Systolic Pressu 38.5 mmHg Right Ventricular Systolic Press 38.5 mmHg PV Peak Velocity 110.0 cm/s PV Peak Gradient 4.8 mmHg FINDINGS LEFT VENTRICLE Normal left ventricular size. Wall thickness is normal. The left ventricular systolic function is normal with an estimated ejection fraction in the range of 55-60%. No regional wall motion abnormalities are present. RIGHT VENTRICLE Normal right ventricular size and systolic function. LEFT ATRIUM The left atrial size is normal. RIGHT ATRIUM The right atrial size is normal. ATRIAL SEPTUM Normal atrial septal thickness without atrial level shunting by limited color doppler interrogation. AORTA The aortic root and proximal ascending aorta are normal in size on limited imaging. MITRAL VALVE Structurally normal mitral valve. Trace mitral valve regurgitation. AORTIC VALVE Trileaflet aortic valve. No aortic valve stenosis or regurgitation. TRICUSPID VALVE The tricuspid valve is not well visualized. There is trace tricuspid valve regurgitation. The estimated pulmonary arterial pressure is 39 mmHg. PULMONARY VALVE No pulmonary valve regurgitation or stenosis. VESSELS The inferior vena cava is dilated. There is greater than 50% respiratory change in dimension of the inferior vena cava (normal). Estimated RAP 8mmHg. PERICARDIUM No pericardial effusion. Sammy García (Electronically Signed) Final Date:27 December 2017 14:31
[2017-12-27] MEDS: Butalbital/APAP/Caff 50/325/40 MG Tablet PO PRN (15:10)
--- NOTE | 2017-12-27 16:48 | P.PNID ---
Subjective Remarks: Patient notes that she has less pain in the feet. Notes that she had some chills earlier today. The left great toe has more erythema today. The right foot erythema is the same. Afebrile. Blood culture has MRSA. This is a 52-year-old white female who is status post surgery on the right foot. The patient underwent placement of hardware including screw and pin into the second right toe and reconstructive surgery on the right great toe with a graft on 12/08/2017 in [place], [place]. She developed severe pain and swelling and redness of both feet and was having heavy sweats and nausea and she presented to the emergency department for evaluation. She was having drainage coming from the top of the second right toe where sutures were in place. She was wearing a boot after the surgery. She stopped using the boot and removed a few stitches at the dorsum of the toe, where she has a longitudinal incision and she was having drainage after that for the past few days. She reported that she contacted her surgeon and was told to come to the hospital for IV antibiotics. The patient was on ciprofloxacin for about a week after the surgery was performed on 12/08/2017. Antibiotics: Vancomycin Past Medical History: PAST MEDICAL HISTORY: Irritable bowel syndrome, history of bilateral wrist surgery, restless leg syndrome, history of bunionectomy of the great toes, history of surgery on the left foot for correction of bunionectomy with resection of the bunion and reconstruction of the great toe and second toe, history of surgery on the left foot including shortening of the second toe and placement of graft with pin and screw. Allergies/Adverse Reactions: Allergies amoxicillin Allergy (Severe, Verified 12/27/17 10:28) rash nitrofurantoin Allergy (Severe, Verified 12/27/17 10:28) Hives valdecoxib Allergy (Severe, Verified 12/27/17 10:28) Hives metronidazole Allergy (Intermediate, Verified 12/27/17 10:28) Rash rofecoxib Allergy (Intermediate, Verified 12/27/17 10:28) Rash Sulfa (Sulfonamide Antibiotics) Allergy (Intermediate, Verified 12/27/17 10:28) Hives latex Allergy (Mild, Verified 12/27/17 10:28) rash meloxicam Allergy (Mild, Verified 12/27/17 10:28) Swelling pregabalin Allergy (Mild, Verified 12/27/17 10:28) Swelling diclofenac Adverse Reaction (Intermediate, Verified 12/27/17 10:28) Upset Stomach etodolac Adverse Reaction (Intermediate, Verified 12/27/17 10:28) Upset Stomach ketorolac Adverse Reaction (Intermediate, Verified 12/27/17 10:28) Upset Stomach oxaprozin Adverse Reaction (Intermediate, Verified 12/27/17 10:28) Upset Stomach Objective Vital Signs 12/26/17 20:00 12/26/17 23:46 12/27/17 00:44 Temperature 98.6 F 98.0 F Pulse Rate 97 H 102 H Respiratory Rate 16 18 16 Blood Pressure 116/81 121/59 L Pulse Oximetry 97 93 L 12/27/17 12:00 Temperature 98.1 F Pulse Rate 97 H Respiratory Rate 20 Blood Pressure 101/69 Pulse Oximetry 93 L Intake & Output 12/26/17 12/27/17 12/27/17 18:59 06:59 18:59 Intake Total 250 / 250 890 / 890 Output Total 300 / 300 Balance 250 / 250 590 / 590 Weight 68.7 kg Intake: IV 250 / 250 250 / 250 Vancomycin Inj 1,000 MG In NS 250 / 250 250 / 250 Inj 250 ML @ 250 mls/hr IV.SIG Q12H [facility] Rx#:[id number] Oral 640 / 640 Output: Urine 300 / 300 Other: # Voids 4 1 Date of Last Bowel Movement 12/25/17 12/26/17 12/27/17 13:23 Blood - Peripheral Aerobic Blood Culture - Pending 12/27/17 13:23 Blood - Peripheral Anaerobic Blood Culture - Pending 12/27/17 13:31 Blood - Peripheral Aerobic Blood Culture - Pending 12/27/17 13:31 Blood - Peripheral Anaerobic Blood Culture - Pending 12/25/17 13:45 Wound - Foot Gram Stain - Final 12/25/17 13:45 Wound - Foot Wound Culture - Final S. aureus MRSA 12/25/17 14:00 Blood - Peripheral Aerobic Blood Culture - Preliminary No growth in 2 days 12/25/17 14:00 Blood - Peripheral Anaerobic Blood Culture - Preliminary S. aureus MRSA 12/25/17 13:50 Blood - Peripheral Aerobic Blood Culture - Preliminary No growth in 2 days 12/25/17 13:50 Blood - Peripheral Anaerobic Blood Culture - Preliminary No growth in 2 days Lab - Hematology Results 12/26/17 05:45 CBC w Diff Auto diff final WBC 13.3 H RBC 3.69 L Hgb 12.1 Hct 35.7 MCV 96.7 MCH 32.8 MCHC 34.0 RDW 11.9 Plt Count 386 MPV 8.1 Neut % (Auto) 77.0 H Lymph % (Auto) 14.3 [place] % (Auto) 7.2 Eos % (Auto) 1.1 Baso % (Auto) 0.4 Neut # (Auto) 10.2 H Lymph # (Auto) 1.9 [place] # (Auto) 1.0 H Eos # (Auto) 0.1 Baso # (Auto) 0.1 WBC Differential . Differential Comment . 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 No definite signs of osteomyelitis for technique. Foot CT 12/27/17 00:00 CONCLUSION: 1. Postsurgical changes along the first ray with an osseous screws securing the proximal and distal phalanges. Some cortical irregularity between the 2 phalanges could represent osteomyelitis. There also appears to be a small cysts soft tissue sinus tract along the dorsal medial aspect of the great toe extending down to the hardware. 2. Additional area of cortical irregularity in the proximal interphalangeal joint of the second digit. Again, findings could represent a focal osteomyelitis. Physical Exam: PHYSICAL EXAMINATION: GENERAL: No acute distress. HEENT: Atraumatic. Extraocular muscles intact. Pupils reactive to light. No icterus. Oropharynx mucosa moist. NECK: Supple without adenopathy or swelling. LUNGS: Clear. HEART: Regular S1, S2, without murmurs. ABDOMEN: Bowel sounds present. Soft. EXTREMITIES: The right foot is still markedly swollen over the entire dorsum of the foot and over the great toe and second toe. The second toe has a longitudinal incision, which has serous drainage coming from the top at the incision. The dorsum of the right foot is extremely warm and very tender. There is swelling at the bottom of the right foot at the base of the toe area as well. The left foot has mild erythema at the great toe. There is a floppy reconstructed second toe. SKIN: No diffuse rash. NEUROLOGIC: Nonfocal. PSYCHIATRIC: Calm and cooperative. Assessment and Plan - Plan IMPRESSION: 1. Postoperative wound infection of the right foot due to methicillin-resistant Staphylococcus aureus. The patient is status post reconstructive surgery of the right foot with hardware on 12/08/2017. 2. Cellulitis of both feet. 3. Bacteremia due to MRSA. Related to right foot infection which also has MRSA. 4. Multiple antibiotic allergies. 5. Leukocytosis secondary to infection. RECOMMENDATIONS: 1. Continue vancomycin. 2. Follow the repeat blood cultures. Patient will need negative blood culture for 72 hours before a PICC line can be placed to do outpatient antibiotics. 3. Follow the white blood cell count. Since the patient has had were in place in the right foot she would need to be on IV antibiotics for treatment of the MRSA for 6 weeks. This will need to be addressed after the blood cultures are negative for a PICC line to be placed.
[2017-12-27] MEDS: Vancomycin Inj 1,250 MG in Sodium Chlor 0.9% Inj 250 ML IV.SIG SCH (17:26)
[2017-12-27] MEDS: Topiramate 100 MG Tablet PO SCH (21:39)
[2017-12-28] MEDS: Vancomycin Inj 1,250 MG in Sodium Chlor 0.9% Inj 250 ML IV.SIG SCH ×2 (06:25→17:01)
[2017-12-28 06:44] LABS: Baso % (Auto) 0.4 % (0.0-2.0); Eos # (Auto) 0.2 th/mm3 (0.0-0.4); Eos % (Auto) 4.2 % (0.0-4.0); Hemoglobin 11.7 gm/dL (11.6-15.3); Lymph % (Auto) 18.4 % (9.0-44.0); Mean Corpuscular HGB Conc 33.5 % (32.0-36.0); Mean Corpuscular Hemoglobin 32.3 pg (27.0-34.0); Mean Corpuscular Volume 96.5 fL (80.0-100.0); Mono # (Auto) 0.4 th/mm3 (0.0-0.9); Mono % (Auto) 7.8 % (0.0-8.0); Neut # (Auto) 4.1 th/mm3 (1.8-7.7); Neut % (Auto) 69.2 % (16.0-70.0); Platelet Count 424 th/mm3 (150-450); Red Blood Count 3.62 mil/mm3 (4.00-5.30); Red Cell Distribution Width 11.6 % (11.6-17.2); White Blood Count 5.7 th/mm3 (4.0-11.0)
[2017-12-28 06:51] LABS: Potassium 3.6 meq/L (3.5-5.1)
[2017-12-28 06:56] LABS: Calcium 8.7 mg/dL (8.5-10.1)
[2017-12-28 06:57] LABS: Carbon Dioxide 26.1 meq/L (21.0-32.0)
[2017-12-28] MEDS: HYDROmorphone PF Inj 2 MG/ML Vial IV.PUSH PRN ×3 (07:56→16:55)
[2017-12-28] MEDS: Gabapentin 300 MG Capsule PO SCH (08:02)
[2017-12-28] MEDS: Venlafaxine XR 75 MG Capsule PO SCH (08:02)
[2017-12-28] MEDS: Enoxaparin Inj 40 MG/0.4 ML Syringe SQ SCH (08:05)
--- NOTE | 2017-12-28 08:30 | P.PNPOD ---
Subjective Interval history: Right foot infection following elective surgery with in [facility]. Pt feels the infection has been improving since admission. She denies any n/v/f/ h/c/sob and feels the pain is manageable. Physical Exam Vital signs: Vital Signs 12/27/17 12:00 12/27/17 16:00 12/27/17 20:00 Temperature 98.1 F 97.6 F 98.1 F Pulse Rate 97 H 95 H 78 Respiratory Rate 20 20 16 Blood Pressure 101/69 107/74 105/70 Pulse Oximetry 93 L 95 96 12/28/17 00:00 12/28/17 07:42 Temperature 98.2 F Pulse Rate 94 H Respiratory Rate 16 18 Blood Pressure 113/79 Pulse Oximetry 95 Intake & Output 12/27/17 12/28/17 12/28/17 18:59 06:59 18:59 Intake Total 1563 / 1563 742.5 / 742.5 262.5 / 262.5 Balance 1563 / 1563 742.5 / 742.5 262.5 / 262.5 Weight 83.8 kg Intake: IV 262.5 / 262.5 262.5 / 262.5 Vancomycin Inj 1,250 MG In NS 262.5 / 262.5 262.5 / 262.5 Inj 250 ML @ 250 mls/hr IV.SIG Q12H [facility] Rx#:[id number] Oral 1563 / 1563 480 / 480 Other: # Voids 5 3 # Bowel Movements 1 Narrative: Left lateral hallux ulceration 0.5cm x 0.5cm x 0, no erythema, no deep probing, no signs of infection Right dorsal second MPJ incision site dehisced with fibrotic dorsal ulceration, erythema persists but is significantly reduced Medications and Allergies Active Medications: Active Medications Acetaminophen (Tylenol) 650 mg PO Q4H PRN PRN Reason: fever/pain 1-2 Acetaminophen/Butalbital/Caffeine (Fioricet 50-325-40) 1 tab PO Q4H PRN PRN Reason: HEADACHE Last Admin: 12/27/17 15:10 Dose: 1 tab Bacitracin (Baciguent Oint) 1 applicatio TOPICAL BID [facility] Last Admin: 12/28/17 08:09 Dose: 1 applicatio Cyclobenzaprine HCl (Flexeril) 10 mg PO TID [facility] Last Admin: 12/28/17 08:03 Dose: 10 mg Diazepam (Valium) 10 mg PO TID PRN PRN Reason: anxiety Last Admin: 12/27/17 12:24 Dose: 10 mg Diphenhydramine HCl (Benadryl) 25 mg PO Q6H PRN PRN Reason: rash/itching Enoxaparin Sodium (Lovenox Inj) 40 mg SQ DAILY [facility] Last Admin: 12/28/17 08:05 Dose: 40 mg Fluticasone Propionate (Flonase Nasal [place]) 2 spray EACH NARE DAILY [facility] Last Admin: 12/28/17 08:03 Dose: 2 spray Gabapentin (Neurontin) 600 mg PO DAILY [facility] Last Admin: 12/28/17 08:02 Dose: 300 mg Hydromorphone HCl (Dilaudid Pf Inj) 0.5 mg IV.PUSH Q4H PRN PRN Reason: BREAKTHROUGH PAIN Last Admin: 12/28/17 07:56 Dose: 0.5 mg Sodium Chloride (Ns Inj) 1,000 mls @ 0 mls/hr IV.SIG BOLUS [facility] Vancomycin HCl 1,250 mg/ (Sodium Chloride) 262.5 mls @ 250 mls/hr IV.SIG Q12H [facility] Last Infusion: 12/28/17 07:28 Dose: Infused Nicotine (Habitrol 21 Mg Patch.24 Hr) 1 patch T-DERMAL DAILY [facility] Last Admin: 12/28/17 08:00 Dose: 1 patch Ondansetron HCl (Zofran Inj) 4 mg IV.PUSH Q8H PRN PRN Reason: nausea Oxycodone/Acetaminophen (Percocet 5/325 Mg) 1 tab PO Q4H PRN PRN Reason: pain 3-7 Last Admin: 12/28/17 07:12 Dose: 1 tab Oxycodone/Acetaminophen (Percocet 5/325 Mg) 2 tab PO Q4H PRN PRN Reason: pain 8-10 Last Admin: 12/27/17 14:49 Dose: 2 tab Patch Removal (Remove Old Patch) 1 each T-DERMAL DAILY [facility] Last Admin: 12/28/17 08:00 Dose: 1 each Pt's Own: Ketotifen Fumarate [Zaditor Opth.] 1 Drop 0 each EACH EYE BID [facility] Patient's Own: ( Tetrahydrozoline [ Visine] 1 Drop) 0 each EACH EYE QID [facility] Pharmacy Profile Note (Vancomycin Consult Pharmacy) 1 each OTHER UNSCH PRN PRN Reason: Pharmacy to dose Ropinirole HCl (Requip) 3 mg PO [facility] Last Admin: 12/27/17 21:40 Dose: 3 mg Topiramate (Topamax) 300 mg PO HS [facility] Last Admin: 12/27/17 21:39 Dose: 300 mg Venlafaxine HCl (Effexor Xr) 150 mg PO DAILY [facility] Last Admin: 12/28/17 08:02 Dose: 150 mg Allergies Allergy/AdvReac Type Severity Reaction Status Date / Time amoxicillin Allergy Severe rash Verified 12/27/17 10:28 nitrofurantoin Allergy Severe Hives Verified 12/27/17 10:28 valdecoxib Allergy Severe Hives Verified 12/27/17 10:28 metronidazole Allergy Intermediate Rash Verified 12/27/17 10:28 rofecoxib Allergy Intermediate Rash Verified 12/27/17 10:28 Sulfa (Sulfonamide Allergy Intermediate Hives Verified 12/27/17 10:28 Antibiotics) latex Allergy Mild rash Verified 12/27/17 10:28 meloxicam Allergy Mild Swelling Verified 12/27/17 10:28 pregabalin Allergy Mild Swelling Verified 12/27/17 10:28 diclofenac AdvReac Intermediate Upset Verified 12/27/17 10:28 Stomach etodolac AdvReac Intermediate Upset Verified 12/27/17 10:28 Stomach ketorolac AdvReac Intermediate Upset Verified 12/27/17 10:28 Stomach oxaprozin AdvReac Intermediate Upset Verified 12/27/17 10:28 Stomach Home Medications Medication Instructions Recorded Confirmed Type xonrdpnogi-ticqrilggovxe-xuko 1 cap PO Q4H PRN 12/25/17 12/25/17 History [Fioricet] ciprofloxacin HCl 500 mg PO BID 12/25/17 12/25/17 History cyclobenzaprine 10 mg PO TID 12/25/17 12/25/17 History diazepam 5 mg PO TID-QID PRN 12/25/17 12/25/17 History diphenhydramine HCl 25 mg PO Q4H PRN 12/25/17 12/25/17 History fluticasone 2 spray INTRANASAL DAILY 12/25/17 12/25/17 History gabapentin 600 mg PO DAILY 12/25/17 12/25/17 History ketotifen fumarate 1 drp OPHTHALMIC (EYE) BID 12/25/17 12/25/17 History oxycodone-acetaminophen 1 tab PO Q4H PRN 12/25/17 12/25/17 History ropinirole 1 - 3 tab PO HS 12/25/17 12/25/17 History tetrahydrozoline 1 drp OPHTHALMIC (EYE) QID 12/25/17 12/25/17 History venlafaxine 150 mg PO DAILY 12/25/17 12/25/17 History topiramate [Topamax] 300 mg PO HS 12/26/17 12/26/17 History Results - Labs CBC & Chem 7: 12/28/17 05:45 12/28/17 05:45 Laboratory Results - last 24 hr 12/27/17 12/28/17 12/28/17 03:45 05:45 05:45 CBC w Diff Auto diff final WBC 5.7 RBC 3.62 L Hgb 11.7 Hct 35.0 MCV 96.5 MCH 32.3 MCHC 33.5 RDW 11.6 Plt Count 424 MPV 8.0 Neut % (Auto) 69.2 Lymph % (Auto) 18.4 [place] % (Auto) 7.8 Eos % (Auto) 4.2 H Baso % (Auto) 0.4 Neut # (Auto) 4.1 Lymph # (Auto) 1.0 [place] # (Auto) 0.4 Eos # (Auto) 0.2 Baso # (Auto) 0.0 WBC Differential . Differential Comment . Sodium 137 Potassium 3.6 Chloride 103 Carbon Dioxide 26.1 Anion Gap 8 BUN 7 Creatinine 0.73 Estimated GFR 83 L Random Glucose 101 Calcium 8.7 Vancomycin Trough 9.7 Microbiology 12/25/17 13:45 Wound - Foot Gram Stain - Final 12/25/17 13:45 Wound - Foot Wound Culture - Final S. aureus MRSA 12/25/17 14:00 Blood - Peripheral Aerobic Blood Culture - Preliminary No growth in 2 days 12/25/17 14:00 Blood - Peripheral Anaerobic Blood Culture - Preliminary S. aureus MRSA 12/25/17 13:50 Blood - Peripheral Aerobic Blood Culture - Preliminary No growth in 2 days 12/25/17 13:50 Blood - Peripheral Anaerobic Blood Culture - Preliminary No growth in 2 days - Imaging Impressions Foot CT 12/27/17 00:00 CONCLUSION: 1. Postsurgical changes in the first and third digits as detailed above. 2. There appears to be a prior bunionectomy involving the first ray with a dorsal sideplate and multiple osseous screws. The side plate is fractured and the distal phalanx is displaced medially. 3. I believe that there is a fibular interposition bone graft between the distal first metatarsal and the distal phalanx. Again, the distal phalanx is displaced medial and is no longer in alignment with the bone graft. 4. Loss of the defined cortical margin the proximal end of the distal phalanx of the first ray which could represent a chronic osteomyelitis. 5. The sesamoids of the first metatarsal appear to be displaced proximally off of the metatarsal head. 6. Chronic fracture, deformity and resorption of the distal aspect of the second metatarsal with almost complete resorption of the proximal phalanx of the same digit. The phalanges of the second digit are displaced medially. Foot CT 12/27/17 00:00 CONCLUSION: 1. Postsurgical changes along the first ray with an osseous screws securing the proximal and distal phalanges. Some cortical irregularity between the 2 phalanges could represent osteomyelitis. There also appears to be a small cysts soft tissue sinus tract along the dorsal medial aspect of the great toe extending down to the hardware. 2. Additional area of cortical irregularity in the proximal interphalangeal joint of the second digit. Again, findings could represent a focal osteomyelitis. Assessment and Plan - Assessment (1) Cellulitis of both feet Code(s): L03.115 - Cellulitis of right lower limb; L03.116 - Cellulitis of left lower limb Status: Acute - Plan -WBC has stabilized, if new blood cultures are negative I suggest 4-6 weeks of iv abx and f/u with her surgeon in [facility] -C is not needed, pt performs her own dressing changes adequately -No surgical intervention from a podiatry standpoint at this time
--- NOTE | 2017-12-28 08:57 | P.PNIM ---
Subjective Interval history: f/u; right foot infection/ bacteremia in no acute distress. pain seems to be controlled. no fever. Physical Exam Vital signs: Vital Signs 12/27/17 12:00 12/27/17 16:00 12/27/17 20:00 Temperature 98.1 F 97.6 F 98.1 F Pulse Rate 97 H 95 H 78 Respiratory Rate 20 20 16 Blood Pressure 101/69 107/74 105/70 Pulse Oximetry 93 L 95 96 12/28/17 00:00 12/28/17 07:42 12/28/17 08:00 Temperature 98.2 F 98.1 F Pulse Rate 94 H 91 H Respiratory Rate 16 18 18 Blood Pressure 113/79 123/74 Pulse Oximetry 95 96 Intake & Output 12/27/17 12/28/17 12/28/17 18:59 06:59 18:59 Intake Total 1563 / 1563 742.5 / 742.5 262.5 / 262.5 Balance 1563 / 1563 742.5 / 742.5 262.5 / 262.5 Weight 83.8 kg Intake: IV 262.5 / 262.5 262.5 / 262.5 Vancomycin Inj 1,250 MG In NS 262.5 / 262.5 262.5 / 262.5 Inj 250 ML @ 250 mls/hr IV.SIG Q12H [facility] Rx#:[id number] Oral 1563 / 1563 480 / 480 Other: # Voids 5 3 # Bowel Movements 1 - Constitutional no acute distress - Routine Respiratory Exam Present: CTA bilaterally - Routine Cardiovascular Exam Present: RRR - Routine Abdominal Exam Present: soft - Routine Extremities Exam Comments: swelling of the feet has improved. - Routine Skin Exam Present: erythema (of both feet has improved.) - Routine Neurological Exam Present: alert, oriented X3 Results - Labs CBC & Chem 7: 12/28/17 05:45 12/28/17 05:45 Laboratory Results - last 24 hr 12/27/17 12/28/17 12/28/17 03:45 05:45 05:45 CBC w Diff Auto diff final WBC 5.7 RBC 3.62 L Hgb 11.7 Hct 35.0 MCV 96.5 MCH 32.3 MCHC 33.5 RDW 11.6 Plt Count 424 MPV 8.0 Neut % (Auto) 69.2 Lymph % (Auto) 18.4 [place] % (Auto) 7.8 Eos % (Auto) 4.2 H Baso % (Auto) 0.4 Neut # (Auto) 4.1 Lymph # (Auto) 1.0 [place] # (Auto) 0.4 Eos # (Auto) 0.2 Baso # (Auto) 0.0 WBC Differential . Differential Comment . Sodium 137 Potassium 3.6 Chloride 103 Carbon Dioxide 26.1 Anion Gap 8 BUN 7 Creatinine 0.73 Estimated GFR 83 L Random Glucose 101 Calcium 8.7 Vancomycin Trough 9.7 Microbiology 12/25/17 13:45 Wound - Foot Gram Stain - Final 12/25/17 13:45 Wound - Foot Wound Culture - Final S. aureus MRSA 12/25/17 14:00 Blood - Peripheral Aerobic Blood Culture - Preliminary No growth in 2 days 12/25/17 14:00 Blood - Peripheral Anaerobic Blood Culture - Preliminary S. aureus MRSA 12/25/17 13:50 Blood - Peripheral Aerobic Blood Culture - Preliminary No growth in 2 days 12/25/17 13:50 Blood - Peripheral Anaerobic Blood Culture - Preliminary No growth in 2 days - Imaging Impressions Foot CT 12/27/17 00:00 CONCLUSION: 1. Postsurgical changes in the first and third digits as detailed above. 2. There appears to be a prior bunionectomy involving the first ray with a dorsal sideplate and multiple osseous screws. The side plate is fractured and the distal phalanx is displaced medially. 3. I believe that there is a fibular interposition bone graft between the distal first metatarsal and the distal phalanx. Again, the distal phalanx is displaced medial and is no longer in alignment with the bone graft. 4. Loss of the defined cortical margin the proximal end of the distal phalanx of the first ray which could represent a chronic osteomyelitis. 5. The sesamoids of the first metatarsal appear to be displaced proximally off of the metatarsal head. 6. Chronic fracture, deformity and resorption of the distal aspect of the second metatarsal with almost complete resorption of the proximal phalanx of the same digit. The phalanges of the second digit are displaced medially. Foot CT 12/27/17 00:00 CONCLUSION: 1. Postsurgical changes along the first ray with an osseous screws securing the proximal and distal phalanges. Some cortical irregularity between the 2 phalanges could represent osteomyelitis. There also appears to be a small cysts soft tissue sinus tract along the dorsal medial aspect of the great toe extending down to the hardware. 2. Additional area of cortical irregularity in the proximal interphalangeal joint of the second digit. Again, findings could represent a focal osteomyelitis. Assessment and Plan - Plan A/P - cellulitis of feet- improving. continue with IV antibiotics- podiatry f/u appreciated and no surgical intervention planned at this time. ID following; recommended IV antibiotic for six weeks. wound culture with MRSA. -MRSA bacteremia continue IV Vanco- repeated blood cultures from 12/27 pending. echo with EF 60% and no vegetation. ID following. -DVT prophylaxis - subq Lovenox. Discharge Planning: dc home - possibly early next week if blood cultures negative and when cleared by ID.
[2017-12-28] MEDS: Topiramate 100 MG Tablet PO SCH (21:51)
[2017-12-29] MEDS ORDERED: Pharmacy Ordered Lab Info OTHER ONE (05:45)
[2017-12-29] MEDS: Vancomycin Inj 1,250 MG in Sodium Chlor 0.9% Inj 250 ML IV.SIG SCH ×2 (05:56→17:27)
[2017-12-29] MEDS: HYDROmorphone PF Inj 2 MG/ML Vial IV.PUSH PRN ×3 (07:41→16:09)
[2017-12-29] MEDS: Gabapentin 300 MG Capsule PO SCH ×3 (10:15→20:31)
[2017-12-29] MEDS: Enoxaparin Inj 40 MG/0.4 ML Syringe SQ SCH (10:16)
[2017-12-29] MEDS: Venlafaxine XR 75 MG Capsule PO SCH (10:20)
--- NOTE | 2017-12-29 10:23 | P.PNIM ---
Subjective Interval history: f/u; right foot infection/ MRSA bacteremia in no acute distress. overall looks better. swelling of the feet has improved. no fever. d/w the RN. Physical Exam Vital signs: Vital Signs 12/28/17 11:36 12/28/17 12:00 12/28/17 13:12 Temperature 98.5 F Pulse Rate 101 H Respiratory Rate 18 18 18 Blood Pressure 159/66 H Pulse Oximetry 97 12/28/17 16:00 12/28/17 16:06 12/28/17 17:25 Temperature 97.8 F Pulse Rate 96 H Respiratory Rate 18 18 18 Blood Pressure 116/66 Pulse Oximetry 96 12/28/17 20:00 12/28/17 23:58 12/29/17 08:00 Temperature 97.8 F 96.3 F L 97.6 F Pulse Rate 79 89 88 Respiratory Rate 18 18 18 Blood Pressure 111/63 103/67 102/61 Pulse Oximetry 96 96 96 Intake & Output 12/28/17 12/29/17 12/29/17 18:59 06:59 18:59 Intake Total 525.0 / 525.0 480 / 480 262.5 / 262.5 Balance 525.0 / 525.0 480 / 480 262.5 / 262.5 Weight 83.4 kg Intake: IV 525.0 / 525.0 262.5 / 262.5 Vancomycin Inj 1,250 MG In NS 525.0 / 525.0 262.5 / 262.5 Inj 250 ML @ 250 mls/hr IV.SIG Q12H [facility] Rx#:[id number] Oral 480 / 480 Other: # Voids 3 Date of Last Bowel Movement 12/27/17 - Constitutional no acute distress - Routine Respiratory Exam Present: CTA bilaterally - Routine Cardiovascular Exam Present: RRR - Routine Abdominal Exam Present: soft - Routine Extremities Exam Comments: right foot swelling has improved. - Routine Skin Exam Present: erythema (of the right foot has improved.) - Routine Neurological Exam Present: alert, oriented X3 Results - Labs CBC & Chem 7: 12/28/17 05:45 12/28/17 05:45 Microbiology 12/27/17 13:23 Blood - Peripheral Aerobic Blood Culture - Preliminary No growth in 1 day 12/27/17 13:23 Blood - Peripheral Anaerobic Blood Culture - Preliminary No growth in 1 day 12/27/17 13:31 Blood - Peripheral Aerobic Blood Culture - Preliminary No growth in 1 day 12/27/17 13:31 Blood - Peripheral Anaerobic Blood Culture - Preliminary No growth in 1 day 12/25/17 14:00 Blood - Peripheral Aerobic Blood Culture - Preliminary No growth in 3 days 12/25/17 14:00 Blood - Peripheral Anaerobic Blood Culture - Final S. aureus MRSA 12/25/17 13:50 Blood - Peripheral Aerobic Blood Culture - Preliminary No growth in 3 days 12/25/17 13:50 Blood - Peripheral Anaerobic Blood Culture - Preliminary No growth in 3 days Assessment and Plan - Plan A/P - cellulitis of feet; R>L; improving. continue with IV antibiotics- podiatry f/u appreciated and no surgical intervention planned at this time. ID following; recommended IV antibiotic for six weeks. wound culture with MRSA. -MRSA bacteremia continue IV Vanco- repeated blood cultures from 12/27 negative so far. echo with EF 60% and no vegetation. ID following. -DVT prophylaxis - subq Lovenox. Discharge Planning: dc home - possibly early this week if blood cultures negative and when cleared by ID.
--- NOTE | 2017-12-29 19:10 | P.PNID ---
Subjective Remarks: Patient reports that she feels better. Still some mild pain in the feet. She feels that the erythema is decreasing in the right foot. Afebrile. Repeat blood culture on 12/27 has no growth. Blood culture from 12/25 has MRSA. This is a 52-year-old white female who is status post surgery on the right foot. The patient underwent placement of hardware including screw and pin into the second right toe and reconstructive surgery on the right great toe with a graft on 12/08/2017 in [place], [place]. She developed severe pain and swelling and redness of both feet and was having heavy sweats and nausea and she presented to the emergency department for evaluation. She was having drainage coming from the top of the second right toe where sutures were in place. She was wearing a boot after the surgery. She stopped using the boot and removed a few stitches at the dorsum of the toe, where she has a longitudinal incision and she was having drainage after that for the past few days. She reported that she contacted her surgeon and was told to come to the hospital for IV antibiotics. The patient was on ciprofloxacin for about a week after the surgery was performed on 12/08/2017. Antibiotics: Vancomycin Past Medical History: PAST MEDICAL HISTORY: Irritable bowel syndrome, history of bilateral wrist surgery, restless leg syndrome, history of bunionectomy of the great toes, history of surgery on the left foot for correction of bunionectomy with resection of the bunion and reconstruction of the great toe and second toe, history of surgery on the left foot including shortening of the second toe and placement of graft with pin and screw. Allergies/Adverse Reactions: Allergies amoxicillin Allergy (Severe, Verified 12/27/17 10:28) rash nitrofurantoin Allergy (Severe, Verified 12/27/17 10:28) Hives valdecoxib Allergy (Severe, Verified 12/27/17 10:28) Hives metronidazole Allergy (Intermediate, Verified 12/27/17 10:28) Rash rofecoxib Allergy (Intermediate, Verified 12/27/17 10:28) Rash Sulfa (Sulfonamide Antibiotics) Allergy (Intermediate, Verified 12/27/17 10:28) Hives latex Allergy (Mild, Verified 12/27/17 10:28) rash meloxicam Allergy (Mild, Verified 12/27/17 10:28) Swelling pregabalin Allergy (Mild, Verified 12/27/17 10:28) Swelling diclofenac Adverse Reaction (Intermediate, Verified 12/27/17 10:28) Upset Stomach etodolac Adverse Reaction (Intermediate, Verified 12/27/17 10:28) Upset Stomach ketorolac Adverse Reaction (Intermediate, Verified 12/27/17 10:28) Upset Stomach oxaprozin Adverse Reaction (Intermediate, Verified 12/27/17 10:28) Upset Stomach Objective Vital Signs 12/28/17 20:00 12/28/17 23:58 12/29/17 08:00 Temperature 97.8 F 96.3 F L 97.6 F Pulse Rate 79 89 88 Respiratory Rate 18 18 18 Blood Pressure 111/63 103/67 102/61 Pulse Oximetry 96 96 96 12/29/17 12:00 12/29/17 16:00 Temperature 97.8 F 98.7 F Pulse Rate 78 95 H Respiratory Rate 18 18 Blood Pressure 118/77 117/58 L Pulse Oximetry 98 96 Intake & Output 12/29/17 12/29/17 12/30/17 06:59 18:59 06:59 Intake Total 480 / 480 262.5 / 262.5 Balance 480 / 480 262.5 / 262.5 Weight 83.4 kg Intake: IV 262.5 / 262.5 Vancomycin Inj 1,250 MG In NS 262.5 / 262.5 Inj 250 ML @ 250 mls/hr IV.SIG Q12H [facility] Rx#:[id number] Oral 480 / 480 Other: # Voids 3 6 Date of Last Bowel Movement 12/27/17 # Bowel Movements 0 12/27/17 13:23 Blood - Peripheral Aerobic Blood Culture - Preliminary No growth in 2 days 12/27/17 13:23 Blood - Peripheral Anaerobic Blood Culture - Preliminary No growth in 2 days 12/27/17 13:31 Blood - Peripheral Aerobic Blood Culture - Preliminary No growth in 2 days 12/27/17 13:31 Blood - Peripheral Anaerobic Blood Culture - Preliminary No growth in 2 days 12/25/17 14:00 Blood - Peripheral Aerobic Blood Culture - Preliminary No growth in 4 days 12/25/17 14:00 Blood - Peripheral Anaerobic Blood Culture - Final S. aureus MRSA 12/25/17 13:50 Blood - Peripheral Aerobic Blood Culture - Preliminary No growth in 4 days 12/25/17 13:50 Blood - Peripheral Anaerobic Blood Culture - Preliminary No growth in 4 days 12/25/17 13:45 Wound - Foot Gram Stain - Final 12/25/17 13:45 Wound - Foot Wound Culture - Final S. aureus MRSA Lab - Hematology Results 12/28/17 05:45 CBC w Diff Auto diff final WBC 5.7 RBC 3.62 L Hgb 11.7 Hct 35.0 MCV 96.5 MCH 32.3 MCHC 33.5 RDW 11.6 Plt Count 424 MPV 8.0 Neut % (Auto) 69.2 Lymph % (Auto) 18.4 Pierce % (Auto) 7.8 Eos % (Auto) 4.2 H Baso % (Auto) 0.4 Neut # (Auto) 4.1 Lymph # (Auto) 1.0 Pierce # (Auto) 0.4 Eos # (Auto) 0.2 Baso # (Auto) 0.0 WBC Differential . Differential Comment . 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 No definite signs of osteomyelitis for technique. Foot CT 12/27/17 00:00 CONCLUSION: 1. Postsurgical changes along the first ray with an osseous screws securing the proximal and distal phalanges. Some cortical irregularity between the 2 phalanges could represent osteomyelitis. There also appears to be a small cysts soft tissue sinus tract along the dorsal medial aspect of the great toe extending down to the hardware. 2. Additional area of cortical irregularity in the proximal interphalangeal joint of the second digit. Again, findings could represent a focal osteomyelitis. Physical Exam: PHYSICAL EXAMINATION: GENERAL: No acute distress. HEENT: Atraumatic. Extraocular muscles intact. Pupils reactive to light. No icterus. Oropharynx mucosa moist. NECK: Supple without adenopathy or swelling. LUNGS: Clear. HEART: Regular S1, S2, without murmurs. ABDOMEN: Bowel sounds present. Soft. EXTREMITIES: Erythema of both the left and right foot is improving. There is still some erythema along the incision on the right second toe. There is a floppy reconstructed second toe on the left. SKIN: No diffuse rash. NEUROLOGIC: Nonfocal. PSYCHIATRIC: Calm and cooperative. Assessment and Plan - Plan IMPRESSION: 1. Postoperative wound infection of the right foot due to methicillin-resistant Staphylococcus aureus. The patient is status post reconstructive surgery of the right foot with hardware on 12/08/2017. 2. Cellulitis of both feet. 3. Bacteremia due to MRSA. Related to right foot infection which also has MRSA. 4. Multiple antibiotic allergies. 5. Leukocytosis secondary to infection. RECOMMENDATIONS: 1. Continue vancomycin. 2. Follow the repeat blood cultures. Patient will need negative blood culture for 72 hours before a PICC line can be placed to do outpatient antibiotics. 3. Follow the white blood cell count. Since the patient has had were in place in the right foot she will need to be on IV antibiotics for treatment of the MRSA for 6 weeks. This will need to be addressed after the blood cultures are negative for a PICC line to be placed.
[2017-12-29] MEDS: Butalbital/APAP/Caff 50/325/40 MG Tablet PO PRN (19:26)
[2017-12-29] MEDS: Topiramate 100 MG Tablet PO SCH (20:30)
[2017-12-30] MEDS: Vancomycin Inj 1,250 MG in Sodium Chlor 0.9% Inj 250 ML IV.SIG SCH ×2 (05:06→18:34)
[2017-12-30] MEDS: HYDROmorphone PF Inj 2 MG/ML Vial IV.PUSH PRN ×5 (05:16→20:49)
[2017-12-30] MEDS: Enoxaparin Inj 40 MG/0.4 ML Syringe SQ SCH (08:58)
[2017-12-30] MEDS: Venlafaxine XR 75 MG Capsule PO SCH (08:59)
[2017-12-30] MEDS: Gabapentin 300 MG Capsule PO SCH ×2 (08:59→20:48)
--- NOTE | 2017-12-30 10:30 | P.PNIM ---
Subjective Interval history: Patient seen and examined this morning. No acute events overnight. She reports that she is doing well and is in good spirits. She is hopeful for getting out of the hospital soon. Informed her that her blood cultures has showed no growth to date x2 and she is very happy with this news. At this time we are waiting for infectious disease to set her up for her PICC line and outpatient antibiotic infusions. Once that is squared away for the patient should be able to be discharged home. She understands and agrees this plan of care. Physical Exam Vital signs: Vital Signs 12/29/17 12:00 12/29/17 16:00 12/29/17 20:00 Temperature 97.8 F 98.7 F 97.9 F Pulse Rate 78 95 H 76 Respiratory Rate 18 18 20 Blood Pressure 118/77 117/58 L 108/72 Pulse Oximetry 98 96 96 12/30/17 00:00 12/30/17 08:00 Temperature 97.6 F 98.3 F Pulse Rate 76 85 Respiratory Rate 20 18 Blood Pressure 106/67 116/70 Pulse Oximetry 96 97 Intake & Output 12/29/17 12/30/17 12/30/17 18:59 06:59 18:59 Intake Total 262.5 / 262.5 1485.0 / 1485.0 Output Total 300 / 300 Balance 262.5 / 262.5 1185.0 / 1185.0 Weight 83.7 kg Intake: IV 262.5 / 262.5 525.0 / 525.0 Vancomycin Inj 1,250 MG In NS 262.5 / 262.5 525.0 / 525.0 Inj 250 ML @ 250 mls/hr IV.SIG Q12H [facility] Rx#:[id number] Oral 960 / 960 Output: Urine 300 / 300 Other: # Voids 6 2 Date of Last Bowel Movement 12/27/17 12/27/17 12/27/17 # Bowel Movements 0 0 Narrative: GENERAL: This is a well-nourished, well-developed patient, in no apparent distress. SKIN: Feet are bandaged bilaterally. No noticeable severe swelling or erythema HEAD: Atraumatic. EYES: Pupils equal round and reactive. ENT: Airway patent. NECK: Trachea midline. RESPIRATORY: Clear to all station bilaterally Cardiology: Regular rate and rhythm MUSCULOSKELETAL:. Negative Homans sign bilaterally. Mild tenderness located mostly to the right great toe NEUROLOGICAL: Awake and alert. Normal speech. Lower extremity physical exam: Vascular: Dorsalis pedis 2/4, posterior tibial 2/4. Capillary refill time within normal limits to digits x5 bilateral foot. Edema present bilateral forefoot, right greater than left Neuro: Gross sensation intact to bilateral lower extremity. Pinpoint sensation intact. No hyperalgesia noted to bilateral lower extremity Results - Labs CBC & Chem 7: 12/28/17 05:45 12/28/17 05:45 Laboratory Results - last 24 hr 12/29/17 05:45 Vancomycin Trough 19.1 H Microbiology 12/27/17 13:23 Blood - Peripheral Aerobic Blood Culture - Preliminary No growth in 2 days 12/27/17 13:23 Blood - Peripheral Anaerobic Blood Culture - Preliminary No growth in 2 days 12/27/17 13:31 Blood - Peripheral Aerobic Blood Culture - Preliminary No growth in 2 days 12/27/17 13:31 Blood - Peripheral Anaerobic Blood Culture - Preliminary No growth in 2 days 12/25/17 14:00 Blood - Peripheral Aerobic Blood Culture - Preliminary No growth in 4 days 12/25/17 14:00 Blood - Peripheral Anaerobic Blood Culture - Final S. aureus MRSA 12/25/17 13:50 Blood - Peripheral Aerobic Blood Culture - Preliminary No growth in 4 days 12/25/17 13:50 Blood - Peripheral Anaerobic Blood Culture - Preliminary No growth in 4 days Assessment and Plan - Assessment (1) Cellulitis of both feet Code(s): L03.115 - Cellulitis of right lower limb; L03.116 - Cellulitis of left lower limb Status: Acute - Plan This is a 52-year-old female presenting with cellulitis of both feet right worse than left. - cellulitis of feet; R>L; improving. continue with IV antibiotics- podiatry f/u appreciated and no surgical intervention planned at this time. ID following; recommended IV antibiotic for six weeks. wound culture with MRSA. Cultures show no growth to date times 2 days. At this time awaiting PICC line placement and outpatient antibiotic infusion set up by infectious disease. -MRSA bacteremia continue IV Vanco- repeated blood cultures from 12/27 times 2 days. echo with EF 60% and no vegetation. ID following. -DVT prophylaxis - subq Lovenox. Code Status: Full code Discharge Planning: Anticipate discharge home in the next day or 2 pending clearance by infectious disease and set up with PICC line and outpatient IV antibiotic infusion
[2017-12-30] MEDS: Topiramate 100 MG Tablet PO SCH (20:48)
[2017-12-31] MEDS: HYDROmorphone PF Inj 2 MG/ML Vial IV.PUSH PRN ×3 (01:31→18:30)
[2017-12-31] MEDS: Vancomycin Inj 1,250 MG in Sodium Chlor 0.9% Inj 250 ML IV.SIG SCH ×2 (06:01→18:20)
[2017-12-31 07:07] LABS: Hematocrit 35.2 % (35.0-46.0); Hemoglobin 11.6 gm/dL (11.6-15.3); Mean Corpuscular HGB Conc 33.1 % (32.0-36.0); Mean Corpuscular Hemoglobin 32.1 pg (27.0-34.0); Mean Corpuscular Volume 96.8 fL (80.0-100.0); Mean Platelet Volume 7.2 fL (7.0-11.0); Platelet Count 556 th/mm3 (150-450); Red Blood Count 3.63 mil/mm3 (4.00-5.30); Red Cell Distribution Width 11.9 % (11.6-17.2); White Blood Count 5.7 th/mm3 (4.0-11.0)
[2017-12-31 07:39] LABS: Alanine Aminotransferase 22 U/L (10-53); Albumin 3.1 g/dL (3.4-5.0); Alkaline Phosphatase 87 U/L (45-117); Anion Gap 6 meq/L (5-15); Aspartate Aminotransferase 13 U/L (15-37); Blood Urea Nitrogen 11 mg/dL (7-18); Calcium 8.8 mg/dL (8.5-10.1); Carbon Dioxide 27.1 meq/L (21.0-32.0); Chloride 107 meq/L (98-107); Glomerular Filtration Rate 67 mL/min (>89); Glucose,Random 83 mg/dL (74-106); Potassium 4.4 meq/L (3.5-5.1); Sodium 140 meq/L (136-145); Total Protein 7.1 g/dL (6.4-8.2)
[2017-12-31] MEDS: Venlafaxine XR 75 MG Capsule PO SCH (08:19)
[2017-12-31] MEDS: Gabapentin 300 MG Capsule PO SCH ×2 (08:20→21:28)
[2017-12-31] MEDS: Enoxaparin Inj 40 MG/0.4 ML Syringe SQ SCH (08:21)
--- NOTE | 2017-12-31 08:32 | P.PNIM ---
Subjective Interval history: Pt seen and examined for f/u of bilateral foot osteomyelitis. Lost IV access yesterday and vascular access team wasn't able to obtain access. Has not received vancomycin this morning yet. Complains of severe, acute on chronic back pain that she attributes to not being able to get up and move around on her feet. Since she lost IV access, she requests something IM to help with her pain. She states she thinks shei s allergic to Toradol. She hopes to be able to go home soon. Denies CP, SOB, abdominal pain, nausea, vomiting. Physical Exam Vital signs: Vital Signs 12/30/17 12:00 12/30/17 15:45 12/30/17 19:37 Temperature 97.1 F L 98.4 F Pulse Rate 80 77 Respiratory Rate 18 18 18 Blood Pressure 110/75 124/85 Pulse Oximetry 97 97 12/30/17 20:00 12/30/17 21:43 12/31/17 00:00 Temperature 96.4 F L 97.1 F L Pulse Rate 89 79 Respiratory Rate 16 16 16 Blood Pressure 106/60 99/57 L Pulse Oximetry 96 95 12/31/17 02:28 Temperature Pulse Rate Respiratory Rate 16 Blood Pressure Pulse Oximetry Intake & Output 12/30/17 12/31/17 12/31/17 18:59 06:59 18:59 Intake Total 462.5 / 462.5 Balance 462.5 / 462.5 Weight 83.7 kg Intake: IV 262.5 / 262.5 Vancomycin Inj 1,250 MG In NS 262.5 / 262.5 Inj 250 ML @ 250 mls/hr IV.SIG Q12H [facility] Rx#:[id number] Oral 200 / 200 Other: # Voids 10 3 Date of Last Bowel Movement 12/27/17 # Bowel Movements 1 Narrative: GENERAL: WN, WD female sitting up in chair in NAD. SKIN: Warm and dry. HEENT: AT/NC. Pupils equal and round. MMM. HEART: RRR no m/r/g. LUNGS: CTAB without wheezes or crackles. ABDOMEN: +BS, soft, NT, ND. EXTREMITIES: No LE edema. Feet and toes partially wrapped in gauze but there is obvious disfiguration of her great toes bilaterally. NEURO: Awake and alert. Results - Labs CBC & Chem 7: 12/31/17 05:45 12/31/17 05:45 Laboratory Results - last 24 hr 12/30/17 12/31/17 12/31/17 10:00 05:45 05:45 WBC 5.7 RBC 3.63 L Hgb 11.6 Hct 35.2 MCV 96.8 MCH 32.1 MCHC 33.1 RDW 11.9 Plt Count 556 H D MPV 7.2 Sodium 140 Potassium 4.4 Chloride 107 Carbon Dioxide 27.1 Anion Gap 6 BUN 11 Creatinine 0.88 0.88 Estimated GFR 67 L 67 L Random Glucose 83 Calcium 8.8 Total Bilirubin 0.3 AST 13 L ALT 22 Alkaline Phosphatase 87 Total Protein 7.1 D Albumin 3.1 L Microbiology 12/27/17 13:23 Blood - Peripheral Aerobic Blood Culture - Preliminary No growth in 3 days 12/27/17 13:23 Blood - Peripheral Anaerobic Blood Culture - Preliminary No growth in 3 days 12/27/17 13:31 Blood - Peripheral Aerobic Blood Culture - Preliminary No growth in 3 days 12/27/17 13:31 Blood - Peripheral Anaerobic Blood Culture - Preliminary No growth in 3 days 12/25/17 14:00 Blood - Peripheral Aerobic Blood Culture - Final No growth in 5 days 12/25/17 14:00 Blood - Peripheral Anaerobic Blood Culture - Final S. 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 No definite signs of osteomyelitis for technique. Foot CT 12/27/17 00:00 CONCLUSION: 1. Postsurgical changes along the first ray with an osseous screws securing the proximal and distal phalanges. Some cortical irregularity between the 2 phalanges could represent osteomyelitis. There also appears to be a small cysts soft tissue sinus tract along the dorsal medial aspect of the great toe extending down to the hardware. 2. Additional area of cortical irregularity in the proximal interphalangeal joint of the second digit. Again, findings could represent a focal osteomyelitis. Assessment and Plan - Assessment (1) Cellulitis of both feet Code(s): L03.115 - Cellulitis of right lower limb; L03.116 - Cellulitis of left lower limb Status: Acute (2) Cellulitis of both feet Code(s): L03.115 - Cellulitis of right lower limb; L03.116 - Cellulitis of left lower limb Status: Acute (3) Open wound of second toe of right foot Code(s): S91.104A - Unspecified open wound of right lesser toe(s) without damage to nail, initial encounter Status: Acute (4) MRSA bacteremia Code(s): R78.81 - Bacteremia Status: Acute - Plan 52 year old female with history of MRSA osteomyelitis with infected hardware in 2017 admitted on 12/25 for bilateral feet cellulitis following podiatric surgery of the left great toe, right great toe, and right second toe on 12/08. 1. 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 MRSA bacteremia - 03/08 blood cultures from 12/25 growing MRSA - ID following - Continue IV vanco - Repeat blood cultures 12/27 negative - 2D echo with EF 55-60% and no vegetations - Vanco x 6 wks as above 3. Chronic back pain - Continue home meds - Follows with pain management as outpatient DVT prophylaxis: Lovenox Discharge Planning: If PICC line placed today and OPAT arranged by ID, she could be discharged today
[2017-12-31] MEDS: Butalbital/APAP/Caff 50/325/40 MG Tablet PO PRN (10:07)
[2017-12-31] MEDS ORDERED: HYDROmorphone PF Inj 4 MG/ML Ampul IM ONE (11:00)
[2017-12-31] MEDS ORDERED: HYDROmorphone PF Inj 2 MG/ML Vial IM ONE (12:00)
--- NOTE | 2017-12-31 17:03 | P.DCO ---
Post Hospital Infusion Therapy - Infusion Therapy Location of Infusion Therapy: Home Health Care IV Infusion Order - Patient Information Patient Weight: 83.7 kg - Administer Medication Vancomycin Additional Dosing Instructions: 1100mg IV Q12 Hours Stop Treatment: 02/05/18 - Additional Information Venous Access: PICC Line Additional Instructions: [x] Peripheral flush and dressing changes per protocol [x] Implanted port and central assembly line brazer: * Implanted port: 10 ml Normal Saline followed by 5 ml Heparin 100 units/ml Heparin flush after each use and monthly to maintain. [] May leave port accessed during therapy. [] May leave peripheral site accessed for duration of therapy. [x] If patient has SOB or respiratory distress, check oxygen saturation. If less than 90% or clinical signs of respiratory distress, administer oxygen at 2 L/min. via nasal cannula and notify physician. [x] Anaphylaxis/Reaction orders: * Stop infusion. * Keep IV line open with saline flush. * Notify physician. * Monitor vital signs every 15 minutes until symptoms resolve. * Check Oxygen saturation; Oxygen at 2 L/min. via nasal cannula if less than 90% or clinical signs of respiratory distress. * Administer diphenhydramine (Benadryl) 25 mg IV STAT, (unless patient has received as pre-med). May repeat once, if necessary. * Solu-Cortef 250 mg IVP over 30-60 seconds, use 100 mg vials for each dissolution. * Epinephrine (1mg/1 ml) 0.3 mg subcutaneously or IVP now with any signs of respiratory distress. * Check with physician for new additional pre-med orders if patient is re- challenged or re-treated. [x] May remove PICC line when treatment complete, after confirming with Physician. [x] If the patient is admitted to the hospital, the ED, or transferred via [facility] , complete transfer form including medication reconciliation order sheet. Weekly Labs: BMP, CBC w/diff Additional Information: Call with vancomycin level greater than 20 or creatinine greater than 2.0 Hold vancomycin if creatinine greater than 2.[address] Jacques . Fax number [phone]. Schedule follow-up with Dr. Grover infectious disease in 1 week. - Patient Information Allergies amoxicillin Allergy (Severe, Verified 12/27/17 10:28) rash nitrofurantoin Allergy (Severe, Verified 12/27/17 10:28) Hives valdecoxib Allergy (Severe, Verified 12/27/17 10:28) Hives metronidazole Allergy (Intermediate, Verified 12/27/17 10:28) Rash rofecoxib Allergy (Intermediate, Verified 12/27/17 10:28) Rash Sulfa (Sulfonamide Antibiotics) Allergy (Intermediate, Verified 12/27/17 10:28) Hives latex Allergy (Mild, Verified 12/27/17 10:28) rash meloxicam Allergy (Mild, Verified 12/27/17 10:28) Swelling pregabalin Allergy (Mild, Verified 12/27/17 10:28) Swelling diclofenac Adverse Reaction (Intermediate, Verified 12/27/17 10:28) Upset Stomach etodolac Adverse Reaction (Intermediate, Verified 12/27/17 10:28) Upset Stomach ketorolac Adverse Reaction (Intermediate, Verified 12/27/17 10:28) Upset Stomach oxaprozin Adverse Reaction (Intermediate, Verified 12/27/17 10:28) Upset Stomach
--- NOTE | 2017-12-31 17:10 | P.PNID ---
Subjective Remarks: Patient reports that she feels better. Still some mild pain in the right foot with ambulation. Afebrile. Repeat blood culture on 12/27 has no growth. Blood culture from 12/25 has MRSA. Repeat blood culture has no growth. This is a 52-year-old white female who is status post surgery on the right foot. The patient underwent placement of hardware including screw and pin into the second right toe and reconstructive surgery on the right great toe with a graft on 12/08/2017 in [place], [place]. She developed severe pain and swelling and redness of both feet and was having heavy sweats and nausea and she presented to the emergency department for evaluation. She was having drainage coming from the top of the second right toe where sutures were in place. She was wearing a boot after the surgery. She stopped using the boot and removed a few stitches at the dorsum of the toe, where she has a longitudinal incision and she was having drainage after that for the past few days. She reported that she contacted her surgeon and was told to come to the hospital for IV antibiotics. The patient was on ciprofloxacin for about a week after the surgery was performed on 12/08/2017. Antibiotics: Vancomycin Past Medical History: PAST MEDICAL HISTORY: Irritable bowel syndrome, history of bilateral wrist surgery, restless leg syndrome, history of bunionectomy of the great toes, history of surgery on the left foot for correction of bunionectomy with resection of the bunion and reconstruction of the great toe and second toe, history of surgery on the left foot including shortening of the second toe and placement of graft with pin and screw. Allergies/Adverse Reactions: Allergies amoxicillin Allergy (Severe, Verified 12/27/17 10:28) rash nitrofurantoin Allergy (Severe, Verified 12/27/17 10:28) Hives valdecoxib Allergy (Severe, Verified 12/27/17 10:28) Hives metronidazole Allergy (Intermediate, Verified 12/27/17 10:28) Rash rofecoxib Allergy (Intermediate, Verified 12/27/17 10:28) Rash Sulfa (Sulfonamide Antibiotics) Allergy (Intermediate, Verified 12/27/17 10:28) Hives latex Allergy (Mild, Verified 12/27/17 10:28) rash meloxicam Allergy (Mild, Verified 12/27/17 10:28) Swelling pregabalin Allergy (Mild, Verified 12/27/17 10:28) Swelling diclofenac Adverse Reaction (Intermediate, Verified 12/27/17 10:28) Upset Stomach etodolac Adverse Reaction (Intermediate, Verified 12/27/17 10:28) Upset Stomach ketorolac Adverse Reaction (Intermediate, Verified 12/27/17 10:28) Upset Stomach oxaprozin Adverse Reaction (Intermediate, Verified 12/27/17 10:28) Upset Stomach Objective Vital Signs 12/30/17 19:37 12/30/17 20:00 12/30/17 21:43 Temperature 96.4 F L Pulse Rate 89 Respiratory Rate 18 16 16 Blood Pressure 106/60 Pulse Oximetry 96 12/31/17 00:00 12/31/17 02:28 12/31/17 08:00 Temperature 97.1 F L 97.5 F L Pulse Rate 79 89 Respiratory Rate 16 16 20 Blood Pressure 99/57 L 103/76 Pulse Oximetry 95 98 12/31/17 10:03 12/31/17 11:58 12/31/17 12:00 Temperature 98.7 F Pulse Rate 87 Respiratory Rate 20 20 20 Blood Pressure 111/74 Pulse Oximetry 96 Intake & Output 12/30/17 12/31/17 12/31/17 18:59 06:59 18:59 Intake Total 462.5 / 462.5 Balance 462.5 / 462.5 Weight 83.7 kg 83.7 kg Intake: IV 262.5 / 262.5 Vancomycin Inj 1,250 MG In NS 262.5 / 262.5 Inj 250 ML @ 250 mls/hr IV.SIG Q12H [facility] Rx#:[id number] Oral 200 / 200 Other: # Voids 10 3 Date of Last Bowel Movement 12/27/17 12/30/17 # Bowel Movements 1 12/27/17 13:23 Blood - Peripheral Aerobic Blood Culture - Preliminary No growth in 4 days 12/27/17 13:23 Blood - Peripheral Anaerobic Blood Culture - Preliminary No growth in 4 days 12/27/17 13:31 Blood - Peripheral Aerobic Blood Culture - Preliminary No growth in 4 days 12/27/17 13:31 Blood - Peripheral Anaerobic Blood Culture - Preliminary No growth in 4 days 12/25/17 14:00 Blood - Peripheral Aerobic Blood Culture - Final No growth in 5 days 12/25/17 14:00 Blood - Peripheral Anaerobic Blood Culture - Final S. aureus MRSA 12/25/17 13:50 Blood - Peripheral Aerobic Blood Culture - Final No growth in 5 days 12/25/17 13:50 Blood - Peripheral Anaerobic Blood Culture - Final No growth in 5 days Lab - Hematology Results 12/31/17 05:45 WBC 5.7 RBC 3.63 L Hgb 11.6 Hct 35.2 MCV 96.8 MCH 32.1 MCHC 33.1 RDW 11.9 Plt Count 556 H D MPV 7.2 Lab - Chemistry Results 12/30/17 12/31/17 10:00 05:45 Sodium 140 Potassium 4.4 Chloride 107 Carbon Dioxide 27.1 Anion Gap 6 BUN 11 Creatinine 0.88 0.88 Estimated GFR 67 L 67 L Random Glucose 83 Calcium 8.8 Total Bilirubin 0.3 AST 13 L ALT 22 Alkaline Phosphatase 87 Total Protein 7.1 D Albumin 3.1 L Imaging: ITS Impressions Foot X-Ray 12/25/17 13:26 CONCLUSION: Postsurgical changes with 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 No definite signs of osteomyelitis for technique. Foot CT 12/27/17 00:00 CONCLUSION: 1. Postsurgical changes along the first ray with an osseous screws securing the proximal and distal phalanges. Some cortical irregularity between the 2 phalanges could represent osteomyelitis. There also appears to be a small cysts soft tissue sinus tract along the dorsal medial aspect of the great toe extending down to the hardware. 2. Additional area of cortical irregularity in the proximal interphalangeal joint of the second digit. Again, findings could represent a focal osteomyelitis. Physical Exam: PHYSICAL EXAMINATION: GENERAL: No acute distress. HEENT: Atraumatic. Extraocular muscles intact. Pupils reactive to light. No icterus. Oropharynx mucosa moist. NECK: Supple without adenopathy or swelling. LUNGS: Clear breath sounds. HEART: Regular S1, S2, without murmurs. ABDOMEN: Bowel sounds present. Soft. EXTREMITIES: Erythema of both the left and right foot is decreased. There is still minimal erythema along the incision on the right second toe. SKIN: No diffuse rash. NEUROLOGIC: Nonfocal. PSYCHIATRIC: Calm and cooperative. Assessment and Plan - Plan IMPRESSION: 1. Postoperative wound infection of the right foot due to methicillin-resistant Staphylococcus aureus. The patient is status post reconstructive surgery of the right foot with hardware on 12/08/2017. 2. Cellulitis of both feet. Improved 3. Bacteremia due to MRSA. Related to right foot infection which also has MRSA. 4. Multiple antibiotic allergies. 5. Leukocytosis secondary to infection. Improved RECOMMENDATIONS: 1. Continue vancomycin IV until February 05, 2018.. 2. PICC line ordered for antibiotics. 3. Follow-up with infectious disease outpatient in 1 week to manage outpatient treatment for infection. Follow-up with her orthopedic surgeon. Okay to discharge when antibiotics are arranged.
[2017-12-31] MEDS: Topiramate 100 MG Tablet PO SCH (21:28)
[2018-01-01 02:42] VITALS: RESP 18
[2018-01-01] MEDS: Vancomycin Inj 1,250 MG in Sodium Chlor 0.9% Inj 250 ML IV.SIG SCH ×2 (05:05→17:04)
[2018-01-01] MEDS: HYDROmorphone PF Inj 2 MG/ML Vial IV.PUSH PRN ×3 (05:09→14:16)
[2018-01-01] MEDS: Gabapentin 300 MG Capsule PO SCH (08:51)
[2018-01-01] MEDS: Enoxaparin Inj 40 MG/0.4 ML Syringe SQ SCH (08:51)
[2018-01-01] MEDS: Venlafaxine XR 75 MG Capsule PO SCH (08:51)
[2018-01-01 09:12] VITALS: BP 109/73; PULSE 91; TEMP 98.6; O2SAT 96
--- NOTE | 2018-01-01 09:21 | P.DS ---
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 This was treated medically with IV vancomycin for 6 weeks. On 12/08/17 she underwent podiatric surgery by Dr. Delmar Still in [facility] where she had a surgical procedure on her left great toe, right great toe, and right second toe. She had a follow-up appointment with them on 12/20/17, and reportedly everything was going well. She is scheduled for another appointment with them in a couple of days to have the rest of her sutures removed from her right second toe. she says that when she woke up this morning she wasn't feeling well. she noticed redness,swelling and worsening pain to both feet.she says that she had some fever and chills last night.she says that she's been on cipro which she took the last dose last night. Patient update on day of discharge: Patient seen and examined. Anxious to go home. Reports pain is controlled but states that she may not be able to see her pain management doctor right away so requests a brief supply of Percocet until she is able to be seen. Denies fever , chills, chest pain, shortness of breath. She is ambulating. She changes her dressings. [place] Prescription Drug Monitoring Database has been queried and verified prior to prescribing the controlled substance. Acute pain exception. This patient has normal, predicted, physiological, and time-limited response to an adverse stimulus associated with foot cellulitis and MRSA wound infection. There is a lack of alternative treatment options other than to include the prescribed narcotic treatment for this condition. DS: Diagnosis - Discharge Diagnosis (1) Cellulitis of both feet Status: Acute (2) Open wound of second toe of right foot Status: Acute (3) MRSA bacteremia Status: Acute DS: Summary Hospital Course: 52 year old female with history of MRSA osteomyelitis with infected hardware in 2017 admitted on 12/25 for bilateral feet cellulitis following podiatric surgery of the left great toe, right great toe, and right second toe on 12/08. Wound from right second toe grew MRSA and patient had 1/4 blood cultures growing MRSA. ID was consulted who recommended 6 weeks of IV vanco. A PICC line was placed and outpatient IV antibiotics were arranged. Podiatry was also consulted who did not feel the patient needed any further surgical intervention. She was discharged in stable condition on 01/01. - Time Spent with Patient Total time spent providing and/or coordinating discharge services: Less than 30 minutes - Quality: VTE Deep Vein Thrombosis/Pulmonary Embolism Present on Admission: No Exam Vital signs: Vital Signs 12/31/17 10:03 12/31/17 11:58 12/31/17 12:00 Temperature 98.7 F Pulse Rate 87 Respiratory Rate 20 20 20 Blood Pressure 111/74 Pulse Oximetry 96 12/31/17 16:00 12/31/17 18:20 12/31/17 20:00 Temperature 97.5 F L 98.3 F Pulse Rate 81 90 Respiratory Rate 20 20 16 Blood Pressure 121/86 101/57 L Pulse Oximetry 99 95 01/01/18 00:00 01/01/18 08:00 Temperature 94.5 F L 98.6 F Pulse Rate 88 91 H Respiratory Rate 18 Blood Pressure 100/72 109/73 Pulse Oximetry 95 96 Intake & Output 12/31/17 01/01/18 01/01/18 18:59 06:59 18:59 Intake Total 841.5 / 841.5 262.5 / 262.5 262.5 / 262.5 Balance 841.5 / 841.5 262.5 / 262.5 262.5 / 262.5 Weight 83.7 kg Intake: IV 25.5 / 25.5 262.5 / 262.5 262.5 / 262.5 Vancomycin Inj 1,250 MG In NS 25.5 / 25.5 262.5 / 262.5 262.5 / 262.5 Inj 250 ML @ 250 mls/hr IV.SIG Q12H [facility] Rx#:[id number] Oral 816 / 816 Other: # Voids 3 Date of Last Bowel Movement 12/30/17 12/30/17 Narrative: GENERAL: WN, WD female sitting up in chair in NAD. SKIN: Warm and dry. HEENT: AT/NC. Pupils equal and round. MMM. HEART: RRR no m/r/g. LUNGS: CTAB without wheezes or crackles. ABDOMEN: +BS, soft, NT, ND. EXTREMITIES: No LE edema. Feet and toes partially wrapped in gauze but there is obvious disfiguration of her great toes bilaterally. NEURO: Awake and alert. 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 No definite signs of osteomyelitis for technique. Foot CT 12/27/17 00:00 CONCLUSION: 1. Postsurgical changes along the first ray with an osseous screws securing the proximal and distal phalanges. Some cortical irregularity between the 2 phalanges could represent osteomyelitis. There also appears to be a small cysts soft tissue sinus tract along the dorsal medial aspect of the great toe extending down to the hardware. 2. Additional area of cortical irregularity in the proximal interphalangeal joint of the second digit. Again, findings could represent a focal osteomyelitis. Discharge Plan - Discharge Disposition Patient Disposition: 01 Discharge Home - Discharge Condition Condition: Stable - Discharge Order Discharge Orders: Discharge Order (Routine); Ordered 01/01/18 Ordered By: Loree Wood - Discharge Details Anticipated Discharge Date: 01/01/18 - Physicians Team Primary Care Provider: Jose Luis Maurice Attending Provider: Loree Wood Other Providers: Kandy Elizabeth DPM ; Fabrice Jacques MD
[2018-01-01] MEDS ORDERED: Heparin Central Flush 100 UNIT/ML 5 ML Vial IV.FLUSH PRN (10:57)
--- NOTE | 2018-01-01 14:56 | P.DCO ---
- Diagnosis (1) Cellulitis of both feet Status: Acute (2) Open wound of second toe of right foot Status: Acute (3) MRSA bacteremia Status: Acute - Home Health Nursing Order: Nursing assessment with vital signs Instructions: Please draw vancomycin trough every Sunday - Case Management Consult No - Certification I have seen patient Sharla Castillo on 01/01/18. My clinical findings support the need for the requested home health care services because: Infection with risk of complications, Injectable medication education/ administration I certify that my clinical findings support that this patient is homebound because: Unsteady gait/balance
[2018-01-01] MEDS ORDERED: Pharmacy Ordered Lab Info OTHER ONE (17:45)
[2018-01-01] MEDS: Butalbital/APAP/Caff 50/325/40 MG Tablet PO PRN (19:20)
[2018-01-02] MEDS ORDERED: Heparin Central Flush 100 UNIT/ML 5 ML Vial IV.FLUSH SCH (09:00)
== END 2018-01-01 20:23 | disposition home or self-care (01) ==
LOC: PHED 12:50 → PHEDA 15:08 → PH3 15:08
PROVIDERS: ADMIT Family Medicine; ATTEND Family Medicine